=== PATIENT | male | born 1960 | race Caucasian/White ===

== ENCOUNTER → 2016-09-17 | Outpatient (CLI) | payer OTHER ==
[~2016-09-17] MED LIST: BACTRIM DS 8001 TAB PO; Cleocin150 MG PO; DELTASONE20 M1 PO; FLOMAX0.4 MG PO; HYDROCODONE BIT1 T11 PO; KEFLEX500 MG PO; LASIX20 MG PO; LASIX40 MG PO; LISINOPRIL20 MG PO; LISINOPRIL40 MG PO; NAPROSYN500 MG PO; NKHM; NORCO 325 MG-51 TAB PO; PERCOCET 325 MG1 TA2 PO; PERCOCET 325 MG1 TA7 PO; PREDNICOT20 MG PO; PROAIR RESPICL90 MCG IH; VENTOLIN H0.09 MG/AC INH; ZOFRAN ODT4 MG SL; Zofran4 MG PO
== END | disposition home or self-care (01) ==
LOC: RESCLI 01:09
DX: Z12.11 Encounter for screening for malignant neoplasm of colon (principal); J44.9 Chronic obstructive pulmonary disease, unspecified; I10 Essential (primary) hypertension; Z71.6 Tobacco abuse counseling

== ENCOUNTER → 2017-03-25 | Outpatient (CLI) | payer MEDICARE | END | disposition home or self-care (01) | LOC: RESCLI 03-18 07:37 | DX: I11.0 Hypertensive heart disease with heart failure (principal); I50.9 Heart failure, unspecified; J44.9 Chronic obstructive pulmonary disease, unspecified; G47.30 Sleep apnea, unspecified; Z72.0 Tobacco use; Z71.6 Tobacco abuse counseling ==

== ENCOUNTER → 2017-10-01 | Outpatient (CLI) | payer MEDICARE | END | disposition home or self-care (01) | LOC: RESCLI 03:57 | DX: J44.9 Chronic obstructive pulmonary disease, unspecified (principal); I11.0 Hypertensive heart disease with heart failure; I50.30 Unspecified diastolic (congestive) heart failure; M25.562 Pain in left knee; E66.01 Morbid (severe) obesity due to excess calories; B97.89 Other viral agents as the cause of diseases classified elsewhere; J01.90 Acute sinusitis, unspecified; Z72.0 Tobacco use; Z71.6 Tobacco abuse counseling ==

== ENCOUNTER → 2018-07-01 | Outpatient (CLI) | payer MEDICARE, MEDICAID ==
[~2018-07-01] MED LIST changes: +LEVOFLOXACIN500 MG PO; +PREDNISONE10 MG PO; +PROAIR HFA8.5 GM INH; +SYMB160 INH
== END | disposition home or self-care (01) ==
LOC: RESCLI 01:17
DX: I11.0 Hypertensive heart disease with heart failure (principal); I50.30 Unspecified diastolic (congestive) heart failure; J44.9 Chronic obstructive pulmonary disease, unspecified; E66.01 Morbid (severe) obesity due to excess calories; M54.5 Low back pain; G89.29 Other chronic pain; F17.200 Nicotine dependence, unspecified, uncomplicated; Z79.899 Other long term (current) drug therapy; Z71.6 Tobacco abuse counseling; Z79.82 Long term (current) use of aspirin; Z88.6 Allergy status to analgesic agent

== ENCOUNTER 2018-08-28 17:01 | Inpatient (IN) | payer MEDICARE, MEDICAID ==
[~2018-08-28] VITALS: Ht 177.8 cm; Wt 138.4 kg
--- NOTE | ~2018-08-28 | EKG ---
[place], [place] ELECTROCARDIOGRAM REPORT NAME: THU BANSAL UNIT #: [id number] ROOM: DOCTOR: RUSTY DRAFT REPORT BIRTHDATE: [birth year] [facility] Test Date: 2018-08-28 Test Time: 17:25:46 Pat Name: THU BANSAL Department: Room: Gender: Foreign Correspondent: MELINDA : 1960 Requested By: ROSA M EVANS Order Number: [id number] Reading MD: Measurements Intervals [place] Rate: 74 P: 67 NM: 143 QRS: -42 QRSD: 94 T: 62 QT: 388 QTc: 431 Interpretive Statements Sinus rhythm Left axis deviation Borderline low voltage, extremity leads Consider anterior infarct Compared to ECG 04/01/2018 15:04:06 Myocardial infarct finding now present CM:EKGRPT:ELECTROCARDIOGRAM REPORT [id number] ROSA M GONZALEZ DRAFT REPORT ROSA M EVANS DO
--- NOTE | ~2018-08-28 | CON ---
[place], [place] REPORT OF CONSULTATION NAME: THU BANSAL UNIT #: [id number] ROOM: 401 DOCTOR: OLIVIA VU MD BIRTHDATE: [birth year] DOS: 08/30/2018 PULMONARY CONSULTATION, EVALUATION AND MANAGEMENT CONSULTATION REQUESTED BY: Hospitalist service. REASON FOR CONSULTATION: For assessment of COPD and other respiratory problems. HISTORY OF PRESENT ILLNESS: This is a 58-year-old white male patient has been known with history of severe COPD and has been assessed in the office last on 10/22/2017 with FEV1 at that time noted at 39%. The patient has been also noted with history of obstructive sleep apnea disorder as well from the past. The patient was not using the CPAP as he has been admitted to the hospital under care of hospitalist service on the date of 08/28/2018, presented to the hospital. The patient reported symptoms of progressive shortness of breath, which have been occurring for the past few days at home. Symptoms of shortness of breath have been occurring for this patient 3 days prior to the hospitalization. Symptoms are also associated with increased edema of the lower extremities, nonproductive cough. The patient was complaining of symptoms of orthopnea as well. He has been noted with symptoms of wheezing. There was no chest pain. The patient admitted to the hospital for further medical management of current problem. REVIEW OF SYSTEMS: CONSTITUTIONAL: Fatigue and tiredness reported. Denies symptoms of fever or chills. EYES: Denies any burning, redness, or tenderness. EARS, NOSE, THROAT SYMPTOMS: Denies sore throat, hoarseness, otalgia, postnasal drainage or discharge. CARDIOVASCULAR: Increased edema of the lower extremity. The patient noted symptoms or orthopnea. There have been no symptoms of palpitation or anginal pain. GASTROINTESTINAL: Denies dysphagia, nausea, vomiting, diarrhea, abdominal pain, hematemesis, melena, or hematochezia. SKIN: Denies abnormal lesions or rash except chronic venous stasis pigmentation in lower extremities. GENITOURINARY: No dysuria suprapubic pain, hematuria or urinary incontinence. MUSCULOSKELETAL: No acute joint pain, redness, or tenderness. CENTRAL NERVOUS SYSTEM: Denies dizziness, headache, diplopia, syncope or seizures. Remaining systems were reviewed. They were noted all negative. PAST MEDICAL HISTORY: Known with: 1. Essential hypertension. 2. Morbid obesity. 3. History of bronchial asthma. 4. Chronic obstructive pulmonary disease. 5. Obstructive sleep apnea disorder, which has noted severe nonadherence with the treatment since 2016. [place], [place] REPORT OF CONSULTATION NAME: THU BANSAL UNIT #: [id number] ROOM: 401 DOCTOR: BIANCA ORDAZ MD,OLIVIA BIRTHDATE: [birth year] SOCIAL HISTORY: The patient is , has 2 children, lives at home. No history of alcohol use or any illicit drug use. Tobacco use noted from age [age] years old, 2 packs of cigarettes per day, stating discontinued tobacco products in 07/2018. PAST SURGICAL HISTORY: Denies any major surgical history in the past. FAMILY HISTORY: Father at 62 years of complications of COPD. Mother at 70 years old from an accident. HOME MEDICATIONS: Listed as use of Symbicort, ProAir, Lasix and lisinopril. DRUG ALLERGIES: REPORTED ALLERGY TO THE LEVAQUIN. PHYSICAL EXAMINATION: GENERAL: This is a 58-year-old white male patient currently noted comfortable lying in the bed without acute distress this morning of assessment. Height of 5 feet 10 inches, weight of 205 pounds, BMI 43.7. VITAL SIGNS: Normal temperature of the patient's respiratory rate of 18-20, heart rate 86-72, blood pressure 137/76-153/70. Intake recorded as 1750 Ml. Pulse oxygen saturation on 2.5 liters nasal cannula 93% saturation. Admission oxygen saturation 87%. HEENT: Examination shows chronic morbid obesity. Head was atraumatic. Eyes nonicterus. Decreased posterior pharyngeal space with high tongue base and crowding of soft tissue structures. CARDIOVASCULAR: S1, S2 is audible. LUNGS: Noted diffuse reduction of the breath sounds bilaterally with expiratory wheezing bilaterally. There were no crackles. ABDOMEN: Soft and obese. EXTREMITIES: The patient noted without any acute edema. Chronic venous stasis pigmentation changes were also noted with the dryness of the skin. MUSCULOSKELETAL: Without acute deformities. Cranial nerves 2-12 intact. No focal deficit. MUSCULOSKELETAL: No deformity. LABORATORY DATA: The patient's CBC from 08/28/2018 admission was noted as normal CBC. Lactic acid 1.0, on 08/28/2018. CMP, glucose 121 with a normal BUN and creatinine. CO2 was noted at 33. CBC of this morning WBC count 14.6, hemoglobin and hematocrit normal, platelet count normal. BMP this morning, glucose 153, normal BUN and creatinine, CO2 remains at 33. LFTs, which were done noted mild elevation of AST at 41 and ALT of 96, this was done on 08/29/2018. Influenza A and B, nasal washing antigens were negative. Ultrasound of the abdomen was also completed on this hospitalization of 08/29/2018 was reported with hepatomegaly and marked hepatic steatosis. Blood culture, 08/28/2018 showed no bacterial growth. Chest x-ray one-view was only taking in the Emergency Room on 08/28/2018 was noted with hyperinflation of lungs without any acute pulmonary infiltration. IMPRESSION: [place], [place] REPORT OF CONSULTATION NAME: THU BANSAL UNIT #: [id number] ROOM: [facility] DOCTOR: OLIVIA VU MD BIRTHDATE: [birth year] 1. The patient will be admitted to the hospital with acute hypoxic respiratory failure as well related to acute exacerbation of chronic obstructive pulmonary disease and bronchial asthma. 2. The patient with obstructive sleep apnea noted having treatment. 3. Metabolic alkalosis secondary to chronic hypercarbia and chronic obstructive pulmonary disease very likely. 4. Acute congestive heart failure with possibly cor pulmonale with congestive heart failure, diastolic dysfunction could be considered. 5. Hyperglycemia related to the use of the corticosteroids as well. PLAN OF MANAGEMENT: Continue current dose of Solu-Medrol with gradual reduction based on improvement in the symptoms. Sputum for Gram stain and culture, in case of sputum expectoration. Diuretic therapy to be continued orally and intravenously could be given in case of worsening of the edema of the lower extremity. Consider cardiac assessment and echocardiogram for the assessment of right and the left cardiac functions. Bronchodilator therapy and plan of management as well. Other additional treatment changes will be recommended based on progression of illness. Continue DVT prophylaxis and other care, plan of management. Thanks for allowing me to participate in the care of this patient. OLIVIA VALENZUELA MD CM:CONSTR:REPORT OF CONSULTATION 1659 09/09/18 0728 interface
--- NOTE | ~2018-08-28 | PR ---
[place], [place] PROGRESS NOTE NAME: THU BANSAL UNIT #: [id number] ROOM: 401 DOCTOR: OLIVIA VU MD BIRTHDATE: [birth year] DOS: 08/31/2018 SUBJECTIVE: The patient has been noted comfortable at this time, resting on the bed, has been noted with continued reduction and improvement in the respiratory symptom progressively. Denies symptoms of chest pain, shortness of breath, coughing, wheezing, all other symptoms improvement. Edema in the lower extremity is resolving. OBJECTIVE: VITAL SIGNS: Normal temperature, respiratory rate 20, heart rate 73, blood pressure 156/67. The pulse oxygen saturation of the patient recorded at rest on 2.5 liter nasal cannula 93% saturation. HEENT: No acute change. NECK: Supple. CARDIOVASCULAR: S1, S2 audible. LUNGS: Noted with decreased breath sounds and scattered wheezing. There are no crackles. ABDOMEN: Soft, nontender. Bowel sounds present. EXTREMITIES: Resolving edema. IMPRESSION: 1. Resolving acute cor pulmonale/congestive heart failure, possible diastolic dysfunction. 2. Hyperglycemia secondary to corticosteroids. 3. Acute exacerbation of chronic obstructive pulmonary disease with acute hypoxic respiratory failure. PLAN OF MANAGEMENT: Decrease the Solu-Medrol to 40 mg b.i.d. dosing. The patient has been ordered echocardiogram that will be done tomorrow morning for assessment of the cardiac functions. Home oxygen assessment. Possible potential discharge tomorrow has been also ordered to be done. Assessment and management. Discharge planning was discussed with the primary care attending of this patient, Dr. Olivarez. [place], [place] PROGRESS NOTE NAME: THU BANSAL UNIT #: [id number] ROOM: 401 DOCTOR: OLIVIA VU MD BIRTHDATE: [birth year] OLIVIA VALENZUELA MD CM:PNTRANS 1433 [id number] OLIVIA ORDAZ MD 08/31/18 1830 interface
[2018-08-28 17:01] VITALS: BP 187/75
--- NOTE | 2018-08-28 17:10 | NUR ---
NO MED LIST.
[2018-08-28 17:47] LABS: BASO # 0.1 10*3/uL (0.0-0.1); BASO % 0.7 % (0.0-1.0); EOS # 0.5 10*3/uL (0.0-0.4); EOS % 7.5 % (1.0-4.0); HEMATOCRIT 45.4 % (42.0-52.0); HEMOGLOBIN 15.4 g/dl (14.0-18.0); LYMPH # 1.5 10*3/uL (1.3-4.4); LYMPH % 21.3 % (27.0-41.0); MEAN CELL VOLUME 94.4 fl (80.0-94.0); MEAN CORPUSCULAR HGB CONC 33.9 g/dl (33.0-37.0); MEAN PLATELET VOLUME 10.8 fl (9.6-12.3); MONO # 0.5 10*3/uL (0.1-1.0); MONO % 6.9 % (3.0-9.0); NEUT # 4.4 10*3/uL (2.3-7.9); NEUT % 62.7 % (47.0-73.0); PLATELET COUNT AUTOMATED 152 10*3/uL (130-400); RED BLOOD COUNT 4.81 10*6/uL (4.50-5.90); RED CELL DISTRI WIDTH 13.3 % (0-14.5); WHITE BLOOD COUNT 6.9 10*3/uL (4.8-10.8)
[2018-08-28 17:56] LABS: ACT PARTIAL THROMBO TIME 23.4 SECONDS (20.8-31.5)
[2018-08-28 18:01] LABS: ALBUMIN 3.7 gm/dl (3.1-4.5); ALKALINE PHOSPHATASE 78 U/L (45-117); BUN 14 mg/dl (7-24); CHLORIDE 105 mmol/L (98-107); CREATININE 0.97 mg/dL (0.70-1.30); LIPASE 140 U/L (73-393); SGOT/AST 55 IU/L (3-35); SGPT/ALT 100 U/L (12-78); SODIUM 144 mmol/L (136-145); TOTAL PROTEIN 7.5 gm/dL (6.4-8.2)
--- NOTE | 2018-08-28 18:08 | NUR ---
SOLUMEDROL STOP TIME
[2018-08-28 18:10] LABS: TROPONIN I < 0.015 ng/ml (<0.045)
--- NOTE | 2018-08-28 18:36 | NUR ---
ROCEPHIN STOP TIME
[2018-08-28 19:06] VITALS: BP 146/96
[2018-08-28 19:22] VITALS: BP 151/76
[2018-08-28 19:30] VITALS: BP 148/88
[2018-08-28 19:36] VITALS: BP 148/88
--- NOTE | 2018-08-28 19:36 | NUR ---
A 58, admitted to , under the services of GLO Stephen DO with a diagnosis of ACUTE RESP FAILURE W HYPOXIA, HILL, PNEUMONITIS. Chief complaint is SHORTNESS OF BREATH. Patient arrived via bed from ER. Monitor applied. Initial assessment completed. Vital signs taken and recorded. GLO STEPHEN DO notified of admission to the unit. Orders received. See assessment for past medical history, medications and allergies. Patient and/or family oriented to unit. [facility] visitation policy reviewed. Clothing/patient valuable form completed. MARY WEI
--- NOTE | 2018-08-28 20:09 | NUR ---
MED REC UPDATED WITH PATIENT
--- NOTE | 2018-08-28 20:12 | NUR ---
DR CAMPBELL IN WITH PATIENT AT THIS TIME.
--- NOTE | 2018-08-28 22:06 | NUR ---
NOTIFIED DR VALENZUELA OF CONSULT. STATED HE WILL SEE HIM ON SATURDAY
[2018-08-29] VITALS: BP 153/70
[2018-08-29 07:33] LABS: BASO % 0.3 % (0.0-1.0); HEMATOCRIT 49.2 % (42.0-52.0); LYMPH % 9.1 % (27.0-41.0); MEAN CELL VOLUME 95.2 fl (80.0-94.0); MEAN CORPUSCULAR HGB 30.9 pg (27.0-31.0); MEAN CORPUSCULAR HGB CONC 32.5 g/dl (33.0-37.0); MEAN PLATELET VOLUME 11.3 fl (9.6-12.3); MONO # 0.2 10*3/uL (0.1-1.0); MONO % 1.6 % (3.0-9.0); NEUT # 9.1 10*3/uL (2.3-7.9); NEUT % 87.7 % (47.0-73.0); PLATELET COUNT AUTOMATED 177 10*3/uL (130-400); RED BLOOD COUNT 5.17 10*6/uL (4.50-5.90); RED CELL DISTRI WIDTH 13.2 % (0-14.5); WHITE BLOOD COUNT 10.4 10*3/uL (4.8-10.8)
[2018-08-29 07:53] LABS: ALBUMIN 3.7 gm/dl (3.1-4.5); ALKALINE PHOSPHATASE 74 U/L (45-117); BUN 16 mg/dl (7-24); CHLORIDE 102 mmol/L (98-107); CREATININE 0.98 mg/dL (0.70-1.30); FREE T4 0.79 ng/dl (0.76-1.46); PHOSPHOROUS 3.5 mg/dL (2.5-4.9); SGOT/AST 41 IU/L (3-35); SGPT/ALT 96 U/L (12-78); SODIUM 141 mmol/L (136-145)
[2018-08-29 07:58] LABS: THYROID STIM HORMONE (HS) 0.343 uIU/ml (0.358-4.75)
[2018-08-29 08:00] VITALS: BP 130/72
--- NOTE | 2018-08-29 09:00 | NUR ---
Fluid Pump Operator in to talk to patient. Patient states lives at home with . There are few steps in the home. Physician: resident clinic Pharmacy: [facility] pharmacy Home health services: none Patient's level of ADLs: INDEPENDENT Patient has working utilities: all working DME: nebulizer Follow-up physician's appointment after d/c: will be made by hospitalist nurse director upon discharge Does patient want to access PORTAL?: no Discharge plan discussed with patient, patient lives at home with , he is independent in adls and ambulation, works, drives, patient tates he will be going back home when able and denies any home needs. ИРИНА CHANG
[2018-08-29 12:00] VITALS: BP 117/48
[2018-08-29 16:00] VITALS: BP 106/50
[2018-08-29 20:16] VITALS: BP 133/62
--- NOTE | 2018-08-29 23:17 | NUR ---
24 HR chart check completed.
[2018-08-30] VITALS: BP 131/59
[2018-08-30 06:48] LABS: BASO % 0.1 % (0.0-1.0); HEMOGLOBIN 14.8 g/dl (14.0-18.0); LYMPH # 0.9 10*3/uL (1.3-4.4); LYMPH % 5.9 % (27.0-41.0); MEAN CELL VOLUME 97.9 fl (80.0-94.0); MEAN CORPUSCULAR HGB 30.8 pg (27.0-31.0); MEAN CORPUSCULAR HGB CONC 31.5 g/dl (33.0-37.0); MEAN PLATELET VOLUME 11.2 fl (9.6-12.3); MONO # 0.6 10*3/uL (0.1-1.0); MONO % 4.1 % (3.0-9.0); NEUT # 12.9 10*3/uL (2.3-7.9); NEUT % 88.3 % (47.0-73.0); PLATELET COUNT AUTOMATED 187 10*3/uL (130-400); RED CELL DISTRI WIDTH 13.3 % (0-14.5); WHITE BLOOD COUNT 14.6 10*3/uL (4.8-10.8)
[2018-08-30 07:04] LABS: BUN 18 mg/dl (7-24); CHLORIDE 104 mmol/L (98-107); CREATININE 1.02 mg/dL (0.70-1.30); POTASSIUM 4.1 mmol/L (3.5-5.1); SODIUM 144 mmol/L (136-145)
[2018-08-30 07:04] LABS: HEPATITIS B SURFACE AG Negative (Negative); HEPATITIS C VIRUS ANTIBODY <0.1 s/co (0.0-0.9)
[2018-08-30 08:00] VITALS: BP 156/78
[2018-08-30 12:00] VITALS: BP 137/76
[2018-08-30 16:00] VITALS: BP 131/70
[2018-08-30 20:00] VITALS: BP 128/65
--- NOTE | 2018-08-30 20:00 | NUR ---
ALERT ORIENTED X 3. VISITOR AT BEDSIDE. NO C/O VOICED.
[2018-08-31] VITALS: BP 149/81
--- NOTE | 2018-08-31 01:17 | NUR ---
24 HR chart check completed.
[2018-08-31 08:00] VITALS: BP 136/50
[2018-08-31 12:00] VITALS: BP 156/67
[2018-08-31 16:00] VITALS: BP 123/84
--- NOTE | 2018-08-31 16:25 | NUR ---
PT WAS ASSESSED FOR HOME OXYGEN. PT QUALIFIES PT AT REST 92% RA, HR 83, RR 18, B/P 136/50 PT AMBULATED SPO2 86%-87% RA PLACED PT ON 2L, PT AMBULATED SPO2 87-88% ON 2L INCREASED FIO2 TO 3L PT AMBULATED SPO2 91-93% ON 3LNC PT AT REST SPO2 96% 3LNC, HR 90, RR 20, B/P 156/67 RN AND NOTIFIED
--- NOTE | 2018-08-31 18:26 | NUR ---
Shift chart check completed.
[2018-08-31 20:00] VITALS: BP 159/73
--- NOTE | 2018-08-31 20:45 | NUR ---
AWAKE/ALERT FOR SHIFT ASSESSMENT. RESPIRATIONS EASY/REG ON 3LNC. NO VOICED COMPLAINTS AT THIS TIME. ABX INFUSING ORDERD. BED IN LOW POSITION. WHEELS LOCKED, CALL LIGHT IN REACH
[2018-09-01] VITALS: BP 166/78
--- NOTE | 2018-09-01 03:02 | NUR ---
SLEEPING. NO S/S OF DISTRESS NOTED. CALL LIGHT IN REACH
[2018-09-01 06:35] LABS: HEMATOCRIT 52.5 % (42.0-52.0); HEMOGLOBIN 16.1 g/dl (14.0-18.0); MEAN CORPUSCULAR HGB 31.3 pg (27.0-31.0); MEAN CORPUSCULAR HGB CONC 30.7 g/dl (33.0-37.0); MEAN PLATELET VOLUME 11.4 fl (9.6-12.3); PLATELET COUNT AUTOMATED 205 10*3/uL (130-400); RED BLOOD COUNT 5.15 10*6/uL (4.50-5.90); RED CELL DISTRI WIDTH 13.6 % (0-14.5); WHITE BLOOD COUNT 13.2 10*3/uL (4.8-10.8)
[2018-09-01 06:37] LABS: MEAN CELL VOLUME 101.9 fl (80.0-94.0)
[2018-09-01 06:38] LABS: BUN 23 mg/dl (7-24); CHLORIDE 101 mmol/L (98-107); CREATININE 1.05 mg/dL (0.70-1.30); POTASSIUM 4.8 mmol/L (3.5-5.1); SODIUM 140 mmol/L (136-145)
[2018-09-01 06:43] LABS: TOTAL CELLS COUNTED 100 #CELLS
[2018-09-01 06:44] LABS: PLATELET SUFFICIENCY NORMAL (NORMAL)
[2018-09-01 06:45] LABS: POLYCHROMASIA SLIGHT
[2018-09-01 08:00] VITALS: BP 179/89
[2018-09-01] MEDS ORDERED: VITAMIN D32000 UNI1 PO (08:07)
[2018-09-01] MEDS ORDERED: AVPAK AZITHROM250 MG PO (08:07)
[2018-09-01] MEDS ORDERED: PREDNISONE10 MG PO (08:08)
--- NOTE | 2018-09-01 09:00 | NUR ---
case management visits with patient, again discussed with him VNA, patient was receptive to this, given choice of companies, patient chose [facility], will send referral to [facility] for when patient is medically stable for discharge
--- NOTE | 2018-09-01 12:08 | NUR ---
case management called [facility], spoke to Sushil, informed him that patient would be going home today and that patient's information was faxed
--- NOTE | 2018-09-01 12:27 | NUR ---
PATIENT HAS BEEN DISCHARGED. IV DISCONTINUED. PATIENT ACCOMPANIED OFF OF FLOOR BY AND RN. PATIENT WAS TAKEN BY WHEELCHAIR.
== END 2018-09-01 12:27 | disposition home health service (06) | DRG 193 ==
LOC: ED 17:01 → EDHOLD 18:04 → 4E 18:04
PROVIDERS: Emergency Medicine; Family Medicine; Internal Medicine; Student in an Organized Health Care Education/Training Program; ADMIT Internal Medicine
DX: J18.9 Pneumonia, unspecified organism (principal); J96.01 Acute respiratory failure with hypoxia; J96.02 Acute respiratory failure with hypercapnia; I26.09 Other pulmonary embolism with acute cor pulmonale; J45.901 Unspecified asthma with (acute) exacerbation; E87.3 Alkalosis; J43.9 Emphysema, unspecified; E83.41 Hypermagnesemia; I50.9 Heart failure, unspecified; R73.03 Prediabetes; R60.9 Edema, unspecified; K57.90 Diverticulosis of intestine, part unspecified, without perforation or abscess without bleeding; G47.33 Obstructive sleep apnea (adult) (pediatric); F17.210 Nicotine dependence, cigarettes, uncomplicated; K76.0 Fatty (change of) liver, not elsewhere classified; R79.82 Elevated C-reactive protein (CRP); I16.0 Hypertensive urgency; R74.0 Nonspecific elevation of levels of transaminase and lactic acid dehydrogenase [LDH]; R73.9 Hyperglycemia, unspecified; T38.0X5A Adverse effect of glucocorticoids and synthetic analogues, initial encounter; Y92.89 Other specified places as the place of occurrence of the external cause; Z71.6 Tobacco abuse counseling; Z88.1 Allergy status to other antibiotic agents; Z87.01 Personal history of pneumonia (recurrent); Z82.49 Family history of ischemic heart disease and other diseases of the circulatory system; Z83.3 Family history of diabetes mellitus; Z79.899 Other long term (current) drug therapy; Z82.5 Family history of asthma and other chronic lower respiratory diseases

== ENCOUNTER → 2018-09-04 | Outpatient (CLI) | payer OTHER ==
[~2018-09-04] MED LIST changes: +AVPAK AZITHROM250 MG PO; +MUCINEX ER600 MG PO; +VITAMIN D32000 UNI1 PO; +ZITHROMAX500 MG PO
== END | disposition home or self-care (01) ==
DX: Z09 Encounter for follow-up examination after completed treatment for conditions other than malignant neoplasm (principal); E66.01 Morbid (severe) obesity due to excess calories; I10 Essential (primary) hypertension; R60.0 Localized edema; J44.9 Chronic obstructive pulmonary disease, unspecified; G89.29 Other chronic pain; E55.9 Vitamin D deficiency, unspecified; Z79.82 Long term (current) use of aspirin; Z79.899 Other long term (current) drug therapy; Z99.81 Dependence on supplemental oxygen; Z88.8 Allergy status to other drugs, medicaments and biological substances; Z87.891 Personal history of nicotine dependence

== ENCOUNTER → 2018-10-07 | Outpatient (CLI) | payer OTHER ==
[~2018-10-07] MED LIST changes: -MUCINEX ER600 MG PO; -ZITHROMAX500 MG PO
== END | disposition home or self-care (01) ==
LOC: RESCLI 01:34
DX: I10 Essential (primary) hypertension (principal); R60.0 Localized edema; J44.9 Chronic obstructive pulmonary disease, unspecified; G89.29 Other chronic pain; E55.9 Vitamin D deficiency, unspecified; E11.65 Type 2 diabetes mellitus with hyperglycemia; E66.01 Morbid (severe) obesity due to excess calories; Z87.891 Personal history of nicotine dependence; Z79.899 Other long term (current) drug therapy; Z88.8 Allergy status to other drugs, medicaments and biological substances

== ENCOUNTER 2018-11-27 21:28 | Inpatient (IN) | payer OTHER ==
[~2018-11-27] VITALS: Ht 177.8 cm; Wt 139.3 kg
--- NOTE | ~2018-11-27 | PR ---
[place], [place] PROGRESS NOTE NAME: THU BANSAL UNIT #: [id number] ROOM: 402 DOCTOR: BIANCA ORDAZ MD,OLIVIA BIRTHDATE: [birth year] DOS: 11/29/2018 PULMONARY PROGRESS NOTE SUBJECTIVE: The patient is noted comfortable at this time, resting on the bed this morning. Denies symptoms of fever or chills. Denies symptoms of hemoptysis. Reduction of the respiratory symptoms noted in the last 24 hours. OBJECTIVE: VITAL SIGNS: Normal temperature, respiratory rate 20, heart rate 91, blood pressure ____. Pulse ox saturation on 2 liters nasal cannula is 93% saturation. HEENT: Examination shows chronic obesity. Head is atraumatic. NECK: Supple. CARDIOVASCULAR: S1 and S2 is audible. LUNGS: Noted without any wheezing or crackles at the present time. Breaths are noted mildly decreased bilaterally. ABDOMEN: Soft, nontender. Bowel sounds are present. EXTREMITIES: No new change. LABORATORY DATA: Sputum culture preliminarily noted normal nhung. BMP this morning: Normal BUN and creatinine, glucose elevated at 269. IMPRESSION: The patient who has been currently noted with: 1. Gradual resolution of acute exacerbation of bronchial asthma, eosinophilic type, and exacerbation of chronic obstructive pulmonary disease. 2. The patient with obstructive sleep apnea disorder as well, nonadherence to the treatment. PLAN OF MANAGEMENT: No changes in the plan of care. Continue bronchodilators, oxygen supplementation, steroids, and other therapies. Usual care. Solu-Medrol dose will be decreased today to 40 mg b.i.d. dosing. OLIVIA VALENZUELA MD CM:PNTRANS 1419 0051 OLIVIA ORDAZ MD 12/01/18 0945 interface
--- NOTE | ~2018-11-27 | EKG ---
[place], [place] ELECTROCARDIOGRAM REPORT NAME: THU BANSAL UNIT #: [id number] ROOM: 402 DOCTOR: EPIPHANY DRAFT REPORT BIRTHDATE: [birth year] [facility] Test Date: 2018-11-27 Test Time: 21:54:24 Pat Name: THU BANSAL Department: Room: 402 Gender: M Camera Repairer: EKG.UT : 1960 Requested By: YASHIRA ALDRICH Order Number: [id number] Reading MD: Mary Daniel MD Measurements Intervals [place] Rate: 73 P: 0 TN: 140 QRS: -24 QRSD: 102 T: 65 QT: 414 QTc: 457 Interpretive Statements Sinus rhythm Borderline left axis deviation Abnormal R-wave progression, late transition Artifact in lead(s) I,II,aVR,aVL,aVF,V2,V5 Compared to ECG 08/28/2018 17:25:46 No significant changes Electronically Signed On 11-28-2018 12:36:31 PDT by Mary Daniel MD CM:EKGRPT:ELECTROCARDIOGRAM REPORT [id number] 1236 YASHIRA ALDRICH MD EPIPHANY DRAFT REPORT YASHIRA ALDRICH MD
--- NOTE | ~2018-11-27 | PR ---
[place], [place] PROGRESS NOTE NAME: THU BANSAL UNIT #: [id number] ROOM: 402 DOCTOR: BIANCA ORDAZ MD,OLIVIA BIRTHDATE: [birth year] DOS: 12/01/2018 PULMONARY PROGRESS NOTE SUBJECTIVE: The patient continue to do well at this time without any acute new respiratory complaints. Shortness of breath is improving. There were no symptoms of chest pain, fever, or chills. He denies symptoms of hemoptysis. He has been using oxygen supplement this morning of assessment. OBJECTIVE: VITAL SIGNS: The vital signs of the patient, which were recorded showed, the temperature noted as normal, respiratory rate of 20, heart rate of 76 per minute, and blood pressure of 136/69. Pulse ox saturation on 3 liters nasal cannula is 93% saturation. HEENT: On examination, head was atraumatic. Eyes nonicterus. NECK: Supple. Chronic obesity. CARDIOVASCULAR SYSTEM: S1, S2 audible. LUNGS: Without any wheeze or crackle at the present time. ABDOMEN: Soft, nontender. Bowel sounds present. EXTREMITIES: No acute change. IMPRESSION: The patient with stable respiratory status, resolving acute respiratory failure, exacerbation of chronic obstructive pulmonary disease, gradually and progressively; bacteremia ____, most likely a contaminant of the skin. PLAN OF MANAGEMENT: Discharge planning with home oxygen assessment, tapering prednisone, and antibiotic orally. Followup in office would be recommended. Abstinent of tobacco use was recommended. OLIVIA VALENZUELA MD CM:PNTRANS 1250 6 OLIVIA ORDAZ MD 12/02/18 0127 interface
--- NOTE | ~2018-11-27 | PR ---
[place], [place] PROGRESS NOTE NAME: THU BANSAL UNIT #: [id number] ROOM: 402 DOCTOR: BIANCA ORDAZ MD,OLIVIA BIRTHDATE: [birth year] DOS: 11/29/2018 SUBJECTIVE: The patient was seen and examined. The patient noted comfortable at this time, reduction in symptoms of shortness breath was noted. Denies any symptoms of fever or chills. Denies symptoms of coughing or any acute hemoptysis at the present time. Using oxygen supplementation cannula. Continue the steroids and bronchodilators. OBJECTIVE: VITAL SIGNS: The temperature is normal. The respiratory rate 20, heart rate 84, blood pressure 140/62, pulse ox 96% saturation on 4 liters cannula. HEAD, EYES, EARS, NOSE, AND THROAT: Examination shows head was atraumatic. Eyes nonicterus. NECK: Supple. CARDIOVASCULAR SYSTEM: S1, S2 audible. LUNGS: Moderate expiratory wheezing with decreased breath sounds. ABDOMEN: Soft, nontender. Bowel sounds present. EXTREMITIES: Chronic obesity. LABORATORY DATA: CBC that was done today 11/29/2018, WBC count 14.5, hemoglobin 14. Platelet count was normal. CMP as normal BUN and creatinine, glucose 270. IMPRESSION: 1. Acute exacerbation of chronic obstructive pulmonary disease, acute tracheobronchitis as well as bronchial asthma. 2. Hyperglycemia secondary to corticosteroids. PLAN OF TREATMENT: Continue current dose of steroids, bronchodilators, oxygen supplementation, reduction of corticosteroids, tomorrow depends on improvement of respiratory status. OLIVIA VALENZUELA MD CM:PNTRANS 1421 1548 GOLDEN ORDAZ MD 12/01/18 0940 LORY MOCTEZUMA
--- NOTE | ~2018-11-27 | CON ---
[place], [place] REPORT OF CONSULTATION NAME: THU BANSAL UNIT #: [id number] ROOM: 402 DOCTOR: OLIVIA VU MD BIRTHDATE: [birth year] DOS: 11/28/2018 PULMONARY CONSULTATION, EVALUATION, AND MANAGEMENT CONSULTATION REQUESTED BY: Hospitalist Services. REASON FOR CONSULTATION: Assessment of acute exacerbation of chronic obstructive pulmonary disease. HISTORY OF PRESENT ILLNESS: This is a 58-year-old white male, who has been known to me from the past. The patient has been admitted to the hospital on the date of 11/27/2018. The patient presented to the Emergency Room, as he has reported having symptoms of increased coughing associated with significant wheezing and shortness breath for the past 3 to 4 days. Symptoms have been noted progressively getting worse at home. He has been taking usual medications of respiratory disease, has showed no improvement in the respiratory symptoms. Cough has been noted with productive sputum, brown to green in color at times in small quantity. Denies symptoms of chest pain. Chest tightness was reported. There were no symptoms of hemoptysis. The patient has been currently admitted to the hospital for the medical management of acute exacerbation of COPD. REVIEW OF SYSTEMS: CONSTITUTIONAL: Fatigue and tiredness noted without any symptoms of fever or chills. EYES: Denies any burning, redness, or tenderness. EARS, NOSE, AND THROAT: Denies sore throat, hoarseness, otalgia, postnasal drainage or epistaxis. CARDIOVASCULAR: Denies anginal pain, edema of the lower extremities or any pain. Chronic changes in lower extremity were known. GENITOURINARY: Denies dysuria, suprapubic pain, hematuria, or urinary incontinence. GASTROINTESTINAL: Denies dysphagia, nausea, vomiting, diarrhea, abdominal pain, hematemesis, melena, or hematochezia. SKIN: Denies abnormal lesions or rashes. Chronic venous stasis with pigmentation of lower extremity was known. There were no open areas. MUSCULOSKELETAL: Denies any abnormal deformities. Denies any joint pain. CENTRAL NERVOUS SYSTEM: Denies dizziness, headache, diplopia, syncopal episode, or any loss of strength. Remaining systems were reviewed, they were noted all negative. PAST MEDICAL HISTORY: Known for: 1. COPD. 2. Obstructive sleep apnea disorder. 3. Uncomplicated [id number] persistent bronchial asthma. 4. Morbid obesity. 5. Essential hypertension. SOCIAL HISTORY: The patient is . He has 2 children. He lives at home. Denies history of alcohol use or illicit drug use. Tobacco use was reported at [place], [place] REPORT OF CONSULTATION NAME: THU BANSAL UNIT #: [id number] ROOM: 402 DOCTOR: OLIVIA VU MD BIRTHDATE: [birth year] the age of 19 years as 2-pack of cigarettes per day and has not been smoking any cigarettes since July 2018. PAST SURGICAL HISTORY: No major surgeries. FAMILY HISTORY: Father at the age of 62 years from complication of COPD. Mother at 70 years old from motor vehicle accident. MEDICATIONS: The current medications administered are vitamin D, lisinopril, oral Lasix, Lovenox for DVT prophylaxis, Pulmicort Respules, DuoNeb, Solu-Medrol 40 mg every 8 hours, calcium carbonate, IV Zithromax, and Rocephin. DRUG ALLERGIES: NOTED ALLERGIC TO LEVOFLOXACIN. PHYSICAL EXAMINATION: GENERAL: This is a 58-year-old male, currently resting comfortably on the bed without any acute distress this morning of assessment. The patient's height was recorded as 5 feet 10 inches, weight of 307 pounds, BMI 44. The patient has been using oxygen supplementation through nasal cannula. VITAL SIGNS: Normal temperature, respiratory rate ranged between 15-22, heart rate of 87-75, blood pressure was noted as 139/70 to 152/78. HEENT: Severe morbid obesity. Head was atraumatic. NECK: Supple and obese. Severe decreased posterior pharyngeal space. CARDIOVASCULAR SYSTEM: S1 and S2 were audible. LUNGS: The patient was noted with general reduction in breath sound with diffuse expiratory wheezing. No crackles. ABDOMEN: Soft with severe obesity. Bowel sounds present. No tenderness. MUSCULOSKELETAL: Without any acute deformities. CENTRAL NERVOUS SYSTEM: Cranial nerves 2-12 intact. LABORATORY AND DIAGNOSTIC DATA: CBC on 11/27/2018, WBC count 6.1, hemoglobin 13.5, platelet count was normal, eosinophils noted significantly elevated at 7.9% with that. CMP that was done yesterday in the Emergency Room as well was noted normal BUN and creatinine, CO2 36. AST and ALT were noted mildly abnormal. Venous pH was noted at 7.34 ordered by the ER physician. Influenza A and B nasal washing antigen was negative. CBC this morning, WBC count of 6.1, hemoglobin 13.4, platelet count was normal. Chest x-ray one-view that was done in the Emergency Room was reviewed, does not show any acute pulmonary abnormalities. IMPRESSION: 1. The patient has been currently noted with findings of acute exacerbation of chronic obstructive pulmonary disease and acute bronchitis with progression of respiratory symptoms in the past 4 days and hospitalized for further medical management. 2. Acute exacerbation of bronchial asthma, eosinophilic phenotype is also considered as well. 3. Morbid obesity. 4. History of obstructive sleep apnea disorder, nonadherence to treatment previously known. [place], [place] REPORT OF CONSULTATION NAME: THU BANSAL UNIT #: [id number] ROOM: [facility] DOCTOR: BIANCA ORDAZ MD,OLIVIA BIRTHDATE: [birth year] PLAN OF MANAGEMENT: Continue with the current dose of Solu-Medrol, bronchodilators, and oxygen supplementation. Sputum for gram-stain culture will be ordered. Other additional treatment changes will be made for the patient based on progression of the illness. Supportive care. Bronchodilator administration as well. Usual medical management and other therapy at this time. Thanks for allowing me to participate in the care of this patient. OLIVIA VALENZUELA MD CM:CONSTR:REPORT OF CONSULTATION 1156 11/29/18 0207 interface
[2018-11-27 21:30] VITALS: BP 155/64
[2018-11-27 22:06] LABS: BASO # 0.1 10*3/uL (0.0-0.1); BASO % 0.8 % (0.0-1.0); EOS # 0.5 10*3/uL (0.0-0.4); EOS % 7.9 % (1.0-4.0); HEMATOCRIT 42.9 % (42.0-52.0); HEMOGLOBIN 13.5 g/dl (14.0-18.0); LYMPH # 1.7 10*3/uL (1.3-4.4); LYMPH % 27.5 % (27.0-41.0); MEAN CELL VOLUME 99.1 fl (80.0-94.0); MEAN CORPUSCULAR HGB 31.2 pg (27.0-31.0); MEAN CORPUSCULAR HGB CONC 31.5 g/dl (33.0-37.0); MEAN PLATELET VOLUME 11.1 fl (9.6-12.3); MONO # 0.8 10*3/uL (0.1-1.0); MONO % 12.9 % (3.0-9.0); NEUT % 49.8 % (47.0-73.0); PLATELET COUNT AUTOMATED 160 10*3/uL (130-400); RED BLOOD COUNT 4.33 10*6/uL (4.50-5.90); RED CELL DISTRI WIDTH 14.3 % (0-14.5); WHITE BLOOD COUNT 6.1 10*3/uL (4.8-10.8)
[2018-11-27 22:14] LABS: ACT PARTIAL THROMBO TIME 22.2 SECONDS (20.8-31.5); INTERNATIONAL NORM RATIO 0.9 (2.0-3.5)
[2018-11-27 22:28] LABS: ALBUMIN 3.3 gm/dl (3.1-4.5); ALKALINE PHOSPHATASE 83 U/L (45-117); BUN 18 mg/dl (7-24); CHLORIDE 104 mmol/L (98-107); CREATININE 1.18 mg/dL (0.70-1.30); LIPASE 104 U/L (73-393); SGOT/AST 52 IU/L (3-35); SGPT/ALT 99 U/L (12-78); SODIUM 141 mmol/L (136-145); TOTAL PROTEIN 7.4 gm/dL (6.4-8.2)
[2018-11-27 22:36] LABS: TROPONIN I < 0.015 ng/ml (<0.045)
[2018-11-27 22:54] LABS: VENOUS BLOOD GAS O2 SAT 88.5 % (40-85); VENOUS PH 7.341 (7.32-7.43)
[2018-11-27 22:56] VITALS: BP 133/67
--- NOTE | 2018-11-27 22:59 | NUR ---
PATIENT HAS BILATERAL POSTERIOR LOWER LEG DRY PATCHY AREAS NOTED NO DRAINAGE.,. PATIENT HAS HX OF EDEMA TO THE LOWER LEGS. PATIENT HAS BILATERAL ANTERIOR EDEMA TO BOTH FEET.
[2018-11-27 23:28] VITALS: BP 139/70
[2018-11-27 23:45] VITALS: BP 129/61
--- NOTE | 2018-11-27 23:45 | NUR ---
A 58, admitted to 4E, under the services of ROSA M Castillo DO with a diagnosis of COPD EXACERBATION. Chief complaint is SOB COUGH HEADACHE AND CONGESTION. Patient arrived via stretcher from ER. Monitor applied. Initial assessment completed. Vital signs taken and recorded. ROSA M CASTILLO DO notified of admission to the unit. Orders received. See assessment for past medical history, medications and allergies. Patient and/or family oriented to unit. [facility] visitation policy reviewed. Clothing/patient valuable form completed. DARON HENDERSON
--- NOTE | 2018-11-28 00:13 | NUR ---
PATIENT STAES THAT HE IS NOT A DIABETIC AND DOES NOT TAKE ANYTHING FOR DIABETES.
--- NOTE | 2018-11-28 00:19 | NUR ---
MEDS REVIEWED WITH PATIENT AND HIS MEDS FILLED HERE AT THE HOSPITAL
--- NOTE | 2018-11-28 06:07 | NUR ---
CONSULT CALLED TO DOCTOR VALENZUELA NO NEW ORDRES AT THIS TIME.
[2018-11-28 06:39] LABS: ALBUMIN 3.4 gm/dl (3.1-4.5); BUN 16 mg/dl (7-24); CHLORIDE 103 mmol/L (98-107); CHOLESTEROL 176 mg/dL (<200); CREATININE 1.11 mg/dL (0.70-1.30); PHOSPHOROUS 2.2 mg/dL (2.5-4.9); POTASSIUM 4.1 mmol/L (3.5-5.1); SGOT/AST 47 IU/L (3-35); SGPT/ALT 98 U/L (12-78); SODIUM 140 mmol/L (136-145); TOTAL PROTEIN 7.6 gm/dL (6.4-8.2); TRIGLYCERIDES 201 mg/dl (<150); VLDL CHOLESTEROL 40 mg/dL (6-40)
[2018-11-28 06:45] LABS: ALKALINE PHOSPHATASE 90 U/L (45-117); FREE T4 0.87 ng/dl (0.76-1.46); HDL CHOLESTEROL 29 mg/dl (40-60); LDL CHOLESTEROL 107 mg/dL (9-159); THYROID STIM HORMONE (HS) 0.217 uIU/ml (0.358-4.75)
[2018-11-28 06:54] LABS: HEMATOCRIT 43.6 % (42.0-52.0); HEMOGLOBIN 13.4 g/dl (14.0-18.0); MEAN CELL VOLUME 100.2 fl (80.0-94.0); MEAN CORPUSCULAR HGB 30.8 pg (27.0-31.0); MEAN CORPUSCULAR HGB CONC 30.7 g/dl (33.0-37.0); MEAN PLATELET VOLUME 11.7 fl (9.6-12.3); PLATELET COUNT AUTOMATED 164 10*3/uL (130-400); RED BLOOD COUNT 4.35 10*6/uL (4.50-5.90); RED CELL DISTRI WIDTH 14.1 % (0-14.5); WHITE BLOOD COUNT 6.1 10*3/uL (4.8-10.8)
[2018-11-28 07:31] LABS: PLATELET SUFFICIENCY NORMAL (NORMAL); TOTAL CELLS COUNTED 100 #CELLS
[2018-11-28 07:40] LABS: VITAMIN D, 25-HYDROXY 15.8 ng/mL (30-100)
[2018-11-28 08:00] VITALS: BP 152/70
--- NOTE | 2018-11-28 09:00 | NUR ---
Cloth Shrinking Machine Operator Helper in to talk to patient. Patient states lives at home with . There are few steps in the home. [facility]ician: [facility]acy: [facility] Home health services: none Patient's level of ADLs: INDEPENDENT Patient has working utilities: all working DME: home oxygen, doesn't remember the company Follow-up physician's appointment after d/c: will be made by hospitalist nurse director upon discharge Does patient want to access PORTAL?: no Discharge plan discussed with patient, patient lives at home with , states he is independent in adls and ambulation, drives, works occasionally, patient states he has home oxygen, but doesn't remember the name of the company. patient will be going home when able and denies any home needs. ИРИНА CHANG
--- NOTE | 2018-11-28 09:44 | NUR ---
PT WAS INSTRUCTED PT ON FLUTTER. PT TOLERATED WELL. PT CAN DO ON HIS OWN
[2018-11-28 12:00] VITALS: BP 141/70
--- NOTE | 2018-11-28 14:37 | NUR ---
Nutritional Support Services Note: Discussing with pt 1800cal diabetic diet. Diet copy given to pt. All questions were answered. Encouraged healthy eating and portion control. Encouraged more intake of vegetables and fruit. Discussed risks of high BS and need for compliance to diet and weight loss. Ht.5'10 Wt. 307#. Will follow as needed. Encouraged him to call me with any questions or concerns. Ellen Sosa Rdn Ld
[2018-11-28 16:00] VITALS: BP 135/63
[2018-11-28 20:00] VITALS: BP 140/65
[2018-11-29] VITALS: BP 128/69
--- NOTE | 2018-11-29 06:21 | NUR ---
NOTIFIED DR VALENZUELA OF PATIENTS BLOOD CULTURE RESULTS. STATED HE WOULD PUT IN FOR A REPEAT ORDER.
[2018-11-29 07:22] LABS: ALBUMIN 3.4 gm/dl (3.1-4.5); ALKALINE PHOSPHATASE 77 U/L (45-117); BUN 18 mg/dl (7-24); CHLORIDE 102 mmol/L (98-107); CREATININE 0.94 mg/dL (0.70-1.30); PHOSPHOROUS 3.2 mg/dL (2.5-4.9); POTASSIUM 4.2 mmol/L (3.5-5.1); SGOT/AST 28 IU/L (3-35); SGPT/ALT 78 U/L (12-78); SODIUM 140 mmol/L (136-145); TOTAL PROTEIN 7.1 gm/dL (6.4-8.2)
[2018-11-29 07:27] LABS: BASO % 0.1 % (0.0-1.0); LYMPH % 7.2 % (27.0-41.0); MEAN CORPUSCULAR HGB 31.2 pg (27.0-31.0); MEAN CORPUSCULAR HGB CONC 31.8 g/dl (33.0-37.0); MEAN PLATELET VOLUME 11.7 fl (9.6-12.3); MONO # 0.7 10*3/uL (0.1-1.0); MONO % 4.6 % (3.0-9.0); NEUT # 12.6 10*3/uL (2.3-7.9); PLATELET COUNT AUTOMATED 190 10*3/uL (130-400); RED BLOOD COUNT 4.49 10*6/uL (4.50-5.90); RED CELL DISTRI WIDTH 14.2 % (0-14.5); WHITE BLOOD COUNT 14.5 10*3/uL (4.8-10.8)
[2018-11-29 08:00] VITALS: BP 140/62
--- NOTE | 2018-11-29 10:00 | NUR ---
PATIENT AWAKE, ALERT, & ORIENTED X3. WHEEZES HEARD T/O LUNGS BILATERALLY. PATIENT STATES HE DOES FEEL SOME IMPROVEMENT FROM YESTERDAY IN THE SOB. STILL C/O PRODUCTIVE COUGH FOR WHITE SPUTUM. PATIENT WEARING 3L NASAL CANNULA. CALL LIGHT WITHIN REACH.
[2018-11-29 12:00] VITALS: BP 126/50
[2018-11-29 16:00] VITALS: BP 127/59
[2018-11-29 20:00] VITALS: BP 118/92
[2018-11-30] VITALS: BP 147/74
[2018-11-30 06:46] LABS: BASO % 0.3 % (0.0-1.0); HEMATOCRIT 43.9 % (42.0-52.0); HEMOGLOBIN 13.7 g/dl (14.0-18.0); LYMPH # 1.1 10*3/uL (1.3-4.4); LYMPH % 6.9 % (27.0-41.0); MEAN CELL VOLUME 99.5 fl (80.0-94.0); MEAN CORPUSCULAR HGB 31.1 pg (27.0-31.0); MEAN CORPUSCULAR HGB CONC 31.2 g/dl (33.0-37.0); MEAN PLATELET VOLUME 11.2 fl (9.6-12.3); MONO # 0.7 10*3/uL (0.1-1.0); MONO % 4.3 % (3.0-9.0); NEUT # 13.6 10*3/uL (2.3-7.9); NEUT % 86.6 % (47.0-73.0); PLATELET COUNT AUTOMATED 198 10*3/uL (130-400); RED BLOOD COUNT 4.41 10*6/uL (4.50-5.90); RED CELL DISTRI WIDTH 14.3 % (0-14.5); WHITE BLOOD COUNT 15.6 10*3/uL (4.8-10.8)
[2018-11-30 06:58] LABS: BUN 19 mg/dl (7-24); CHLORIDE 103 mmol/L (98-107); CREATININE 0.88 mg/dL (0.70-1.30); POTASSIUM 4.3 mmol/L (3.5-5.1); SODIUM 140 mmol/L (136-145)
[2018-11-30 08:00] VITALS: BP 131/62
--- NOTE | 2018-11-30 11:18 | NUR ---
SpO2 94% ON 4LNC. DECREASED TO 2LNC. WILL CONTINUE TO MONITOR.
[2018-11-30 12:00] VITALS: BP 140/73
[2018-11-30 16:00] VITALS: BP 129/60
--- NOTE | 2018-11-30 19:00 | NUR ---
PT AWAKE IN BED DURING BEDSIDE SHIFT REPORT. NO C/O VOICED AT PRESENT TIME. PT TEACHING GIVEN ON NEED FOR IV SITE FOR IV ATBS D/T POSITIVE BLOOD CULTURES. PT ACKNOWLEDGES BUT EXPRESSING CONCERNS OVER "BAD VEINS" AND PREVIOUS NURSES UNABLE TO OBTAIN IV SITE. ADVISED PT THAT AN ICU NURSE TRAINED IN IV INSERTIONS WILL BE IN AT A LATER TIME. CALL LIGHT IN REACH.
[2018-11-30 20:00] VITALS: BP 155/68
[2018-12-01] VITALS: BP 153/71
[2018-12-01 08:00] VITALS: BP 137/69
[2018-12-01] MEDS ORDERED: PREDNISONE10 MG PO (10:50)
[2018-12-01] MEDS ORDERED: ZITHROMAX500 MG PO (10:50)
[2018-12-01] MEDS ORDERED: MUCINEX ER600 MG PO (10:50)
--- NOTE | 2018-12-01 11:56 | NUR ---
PT ASSESED FOR CONTINOUS HOME OXYGEN. PT WEARS O2 AT NIGHT ONLY AT HOME PT QUALIFIES FOR 4LNC CONTINOUSLY PT AT REST SPO2 85-87% RA PLACED PT ON 2LNC SPO2 93-94% 2L, HR 82, B/P 164/61, RR 18 PT AMBULATED SPO2 87-88% 2LNC INCREASED TO 3L SPO2 90% 3LNC PT AMBULATED SPO2 88-89% 3LNC INCREASED TO 4L SPO2 90-92% 4LNC PT AT REST SPO2 93-95% 4LNC, HR 90, B/P 154/84, RR [address] NOTIFIED PT HAS [employer] AT HOME AND RT CALLED TO GIVE NEW PERSCRIPTION FOR CONTINOUS O2
--- NOTE | 2018-12-01 14:00 | NUR ---
Discharge instructions reviewed with patient/family. Patient receptive and verbalizes understanding. Follow-up care arranged. Written instructions given to patient/family. PATIENT DISCHARGED TO HOME VIA WHEELCHAIR WITH HOME OXYGEN TANK. TR FRANCO
== END 2018-12-01 14:00 | disposition home or self-care (01) | DRG 189 ==
LOC: ED 21:28 → EDHOLD 23:04 → 4E 23:04
PROVIDERS: Emergency Medicine Emergency Medical Services; Internal Medicine; Internal Medicine Nephrology; ADMIT Emergency Medicine
DX: J96.22 Acute and chronic respiratory failure with hypercapnia (principal); R78.81 Bacteremia; E44.0 Moderate protein-calorie malnutrition; J45.51 Severe persistent asthma with (acute) exacerbation; Z68.41 Body mass index [BMI] 40.0-44.9, adult; D53.9 Nutritional anemia, unspecified; R74.0 Nonspecific elevation of levels of transaminase and lactic acid dehydrogenase [LDH]; K57.90 Diverticulosis of intestine, part unspecified, without perforation or abscess without bleeding; K76.0 Fatty (change of) liver, not elsewhere classified; J20.9 Acute bronchitis, unspecified; E11.65 Type 2 diabetes mellitus with hyperglycemia; T38.0X5A Adverse effect of glucocorticoids and synthetic analogues, initial encounter; E55.9 Vitamin D deficiency, unspecified; J43.9 Emphysema, unspecified; I10 Essential (primary) hypertension; E66.01 Morbid (severe) obesity due to excess calories; G47.33 Obstructive sleep apnea (adult) (pediatric); Z99.81 Dependence on supplemental oxygen; Z88.1 Allergy status to other antibiotic agents; Z87.01 Personal history of pneumonia (recurrent); Z87.891 Personal history of nicotine dependence; Z82.49 Family history of ischemic heart disease and other diseases of the circulatory system; Z83.3 Family history of diabetes mellitus; Z87.442 Personal history of urinary calculi; Z82.5 Family history of asthma and other chronic lower respiratory diseases; Z79.899 Other long term (current) drug therapy; Y92.89 Other specified places as the place of occurrence of the external cause

== ENCOUNTER → 2018-12-09 | Outpatient (CLI) | payer OTHER ==
[~2018-12-09] MED LIST changes: +MUCINEX ER600 MG PO; +ZITHROMAX500 MG PO
== END | disposition home or self-care (01) ==
LOC: RESCLI 02:29
DX: Z09 Encounter for follow-up examination after completed treatment for conditions other than malignant neoplasm (principal); I11.0 Hypertensive heart disease with heart failure; I50.32 Chronic diastolic (congestive) heart failure; M79.89 Other specified soft tissue disorders; G89.29 Other chronic pain; E55.9 Vitamin D deficiency, unspecified; J96.11 Chronic respiratory failure with hypoxia; E11.65 Type 2 diabetes mellitus with hyperglycemia; E66.01 Morbid (severe) obesity due to excess calories; J44.9 Chronic obstructive pulmonary disease, unspecified; Z99.81 Dependence on supplemental oxygen; Z79.899 Other long term (current) drug therapy; Z79.82 Long term (current) use of aspirin; Z88.8 Allergy status to other drugs, medicaments and biological substances; Z87.891 Personal history of nicotine dependence

== ENCOUNTER 2018-12-29 23:17 | Emergency (ER) | payer OTHER ==
[~2018-12-29] VITALS: Ht 177.8 cm; Wt 136.1 kg
[2018-12-29 23:48] LABS: BASO # 0.1 10*3/uL (0.0-0.1); BASO % 0.6 % (0.0-1.0); EOS # 0.3 10*3/uL (0.0-0.4); HEMATOCRIT 40.7 % (42.0-52.0); HEMOGLOBIN 13.3 g/dl (14.0-18.0); LYMPH # 1.9 10*3/uL (1.3-4.4); LYMPH % 22.3 % (27.0-41.0); MEAN CELL VOLUME 95.1 fl (80.0-94.0); MEAN CORPUSCULAR HGB 31.1 pg (27.0-31.0); MEAN CORPUSCULAR HGB CONC 32.7 g/dl (33.0-37.0); MEAN PLATELET VOLUME 11.1 fl (9.6-12.3); MONO # 0.9 10*3/uL (0.1-1.0); MONO % 10.8 % (3.0-9.0); NEUT # 5.2 10*3/uL (2.3-7.9); NEUT % 61.2 % (47.0-73.0); NUCLEATED RED BLOOD CELL 0.2 % (0.0-0.0); PLATELET COUNT AUTOMATED 181 10*3/uL (130-400); RED BLOOD COUNT 4.28 10*6/uL (4.50-5.90); RED CELL DISTRI WIDTH 14.2 % (0-14.5); WHITE BLOOD COUNT 8.5 10*3/uL (4.8-10.8)
[2018-12-30 00:02] LABS: ALBUMIN 3.6 gm/dl (3.1-4.5); ALKALINE PHOSPHATASE 67 U/L (45-117); BUN 19 mg/dl (7-24); CHLORIDE 103 mmol/L (98-107); CREATININE 1.18 mg/dL (0.70-1.30); LIPASE 120 U/L (73-393); POTASSIUM 3.9 mmol/L (3.5-5.1); SGOT/AST 47 IU/L (3-35); SGPT/ALT 74 U/L (12-78); SODIUM 141 mmol/L (136-145); TOTAL PROTEIN 7.3 gm/dL (6.4-8.2)
[2018-12-30 00:03] LABS: BILIRUBIN NEGATIVE (NEGATIVE); BLOOD NEGATIVE (NEGATIVE); CLARITY SL CLOUDY (CLEAR); COLOR YELLOW (YELLOW); GLUCOSE NEGATIVE (NEGATIVE); KETONE TRACE (NEGATIVE); LEUKO ESTERASE NEGATIVE (NEGATIVE); NITRITE NEGATIVE (NEGATIVE); SPECIFIC GRAVITY <= 1.005 (1.005-1.030)
[2018-12-30 00:09] LABS: BACTERIA TRACE; EPITHELIAL CELLS 45-50; WBC 0-2 wbc/hpf (0-5)
[2018-12-30] MEDS ORDERED: FLOMAX0.4 MG PO (02:05)
== END 2018-12-30 02:09 | disposition home or self-care (01) ==
LOC: ED 23:17
PROVIDERS: Nurse Practitioner Family
DX: N20.0 Calculus of kidney (principal); J44.9 Chronic obstructive pulmonary disease, unspecified; E11.9 Type 2 diabetes mellitus without complications; I10 Essential (primary) hypertension; E66.01 Morbid (severe) obesity due to excess calories; Z87.442 Personal history of urinary calculi; Z88.1 Allergy status to other antibiotic agents; Z79.899 Other long term (current) drug therapy; Z87.891 Personal history of nicotine dependence

== ENCOUNTER → 2019-01-20 | Outpatient (CLI) | payer OTHER | END | disposition home or self-care (01) | LOC: RESCLI 01:00 | DX: I11.0 Hypertensive heart disease with heart failure (principal); I50.32 Chronic diastolic (congestive) heart failure; E66.01 Morbid (severe) obesity due to excess calories; E55.9 Vitamin D deficiency, unspecified; Z68.41 Body mass index [BMI] 40.0-44.9, adult; Z79.82 Long term (current) use of aspirin; Z79.899 Other long term (current) drug therapy; Z87.891 Personal history of nicotine dependence ==

== ENCOUNTER → 2019-03-13 | Outpatient (CLI) | payer OTHER | END | disposition home or self-care (01) | LOC: RESCLI 00:24 | DX: Z12.11 Encounter for screening for malignant neoplasm of colon (principal); Z12.5 Encounter for screening for malignant neoplasm of prostate; I11.0 Hypertensive heart disease with heart failure; I50.32 Chronic diastolic (congestive) heart failure; E66.01 Morbid (severe) obesity due to excess calories; E55.9 Vitamin D deficiency, unspecified; F10.10 Alcohol abuse, uncomplicated; D53.9 Nutritional anemia, unspecified; E11.65 Type 2 diabetes mellitus with hyperglycemia; Z68.41 Body mass index [BMI] 40.0-44.9, adult; Z79.899 Other long term (current) drug therapy; Z87.891 Personal history of nicotine dependence ==

== ENCOUNTER → 2019-04-17 | Outpatient (CLI) | payer OTHER ==
[2019-04-17 17:04] LABS: FERRITIN 108.6 ng/mL (22.0-322.0)
== END | disposition home or self-care (01) ==
LOC: LAB 09:36
PROVIDERS: Internal Medicine
DX: Z12.5 Encounter for screening for malignant neoplasm of prostate (principal); D53.9 Nutritional anemia, unspecified; E11.65 Type 2 diabetes mellitus with hyperglycemia

== ENCOUNTER → 2019-05-13 | Outpatient (CLI) | payer OTHER ==
[~2019-05-13] MED LIST changes: +DOXYCYCLINE100 M3 PO
== END | disposition home or self-care (01) ==
LOC: RESCLI 03:39
DX: Z12.11 Encounter for screening for malignant neoplasm of colon (principal); J41.0 Simple chronic bronchitis; E55.9 Vitamin D deficiency, unspecified; G89.29 Other chronic pain; D53.9 Nutritional anemia, unspecified; I11.0 Hypertensive heart disease with heart failure; I50.32 Chronic diastolic (congestive) heart failure; Z79.899 Other long term (current) drug therapy; Z87.891 Personal history of nicotine dependence

== ENCOUNTER 2019-06-25 07:59 | Inpatient (IN) | payer OTHER ==
[~2019-06-25] VITALS: Ht 177.8 cm; Wt 136.1 kg
[~2019-06-25 07:59] MED LIST changes: -DOXYCYCLINE100 M3 PO
[2019-06-25 08:01] VITALS: BP 126/70
--- NOTE | 2019-06-25 08:03 | NUR ---
DENIES ANY WOUNDS A&OX4.
[2019-06-25 08:30] VITALS: BP 124/56
[2019-06-25 08:39] LABS: BASO % 0.6 % (0.0-1.0); EOS # 0.5 10*3/uL (0.0-0.4); EOS % 6.3 % (1.0-4.0); HEMATOCRIT 48.2 % (42.0-52.0); HEMOGLOBIN 15.1 g/dl (14.0-18.0); LYMPH # 1.6 10*3/uL (1.3-4.4); LYMPH % 21.6 % (27.0-41.0); MEAN CORPUSCULAR HGB 30.7 pg (27.0-31.0); MEAN CORPUSCULAR HGB CONC 31.3 g/dl (33.0-37.0); MEAN PLATELET VOLUME 11.3 fl (9.6-12.3); MONO # 0.5 10*3/uL (0.1-1.0); NEUT # 4.6 10*3/uL (2.3-7.9); NEUT % 63.5 % (47.0-73.0); PLATELET COUNT AUTOMATED 165 10*3/uL (130-400); RED BLOOD COUNT 4.92 10*6/uL (4.50-5.90); RED CELL DISTRI WIDTH 14.8 % (0-14.5); WHITE BLOOD COUNT 7.2 10*3/uL (4.8-10.8)
[2019-06-25 08:51] LABS: ACT PARTIAL THROMBO TIME 26.3 SECONDS (20.0-32.1); INTERNATIONAL NORM RATIO 0.9 (2.0-3.5)
[2019-06-25 09:02] LABS: ALBUMIN 3.6 gm/dl (3.1-4.5); ALKALINE PHOSPHATASE 77 U/L (45-117); BUN 13 mg/dl (7-24); CHLORIDE 100 mmol/L (98-107); CREATININE 0.99 mg/dL (0.70-1.30); POTASSIUM 4.3 mmol/L (3.5-5.1); SGOT/AST 28 IU/L (3-35); SGPT/ALT 65 U/L (12-78); SODIUM 140 mmol/L (136-145); TOTAL PROTEIN 7.7 gm/dL (6.4-8.2)
--- NOTE | 2019-06-25 09:03 | NUR ---
PATIENT O2 TURNED OFF PER DR MARTIN VERBAL ORDER FOR ROOM AIR PULSE OX. PATIENT IS NOT O2 DEPENDENT DOCUMENTED IN TRIAGE. DAUGHTER JUST CONFIRMED THAT HE ONLY WEARS O2 AT NIGHT.
[2019-06-25 09:04] VITALS: BP 120/55
[2019-06-25 09:04] LABS: TROPONIN I < 0.015 ng/ml (<0.045)
--- NOTE | 2019-06-25 09:24 | NUR ---
PATIENT HAS HOME OXYGEN, WEARS 3LNC NEEDED.
--- NOTE | 2019-06-25 10:10 | NUR ---
ER NURSE ASK TO BRING PATIENT TO ROOM, STATES SHE WILL BRING SOON.
--- NOTE | 2019-06-25 10:43 | NUR ---
A 59, admitted to , under the services of MARLYN Bran DO with a diagnosis of COPD EXACERBATION. Chief complaint is SOB. Patient arrived via bed from ER. Monitor applied. Initial assessment completed. Vital signs taken and recorded. MARLYN BRAN DO notified of admission to the unit. Orders received. See assessment for past medical history, medications and allergies. Patient oriented to unit. Clothing/patient valuable form completed. REJI TOLEDO
--- NOTE | 2019-06-25 10:56 | NUR ---
BEDSIDE REPORT GIVEN TO REJI REILLY. NO CHANGE IN PATIENT STATUS.
--- NOTE | 2019-06-25 11:46 | NUR ---
MADE AWARE THAT HOME MEDS ARE VERIFIED.
[2019-06-25 14:00] VITALS: BP 110/88
[2019-06-25 16:00] VITALS: BP 128/42
[2019-06-25 20:00] VITALS: BP 144/65
--- NOTE | 2019-06-25 20:35 | NUR ---
PT INSTRUCTED ON FLUTTER. PT DISPLAYS PROPER TECHNIQUE OF FLUTTER VALUE. INSTRUCTED TO PERFORM Q1 HR WA. IWLL CONTINUE TO REASSESS NEEDED.
--- NOTE | 2019-06-25 20:53 | NUR ---
Neurological: AAOX3 Respiratory: NONLABORED, 3L O2 DEPENDENT Breath sounds: RHONCHI, WHEEZE T/O Cough: NONPRODUCTIVE Cardiovascular: HRR, DENIES CP/PRESSURE, NO EDEMA, PPP Gastrointestinal: NORMOACTIVE X4 QUADS, DENIES N/V/D/C, FIRM, OBESE, NONTENDER LAST BM 06/24 Genito/Urinary: DENIES DYSURIA Musculoskeketal: AMBULATORY W/ STEADY GAIT, SKIN INTACT PATIENT IS RESTING IN BED. ASSESSMENT IS COMPLETE WITH NO C/O OR S/S OF DISTRESS NOTED AT THIS TIME BED IS LOW, LOCKED, AND CALL LIGHT IS WITHIN REACH. PARISH BILL A
[2019-06-26] VITALS: BP 142/67
--- NOTE | 2019-06-26 05:03 | NUR ---
24 HR chart check completed.
--- NOTE | 2019-06-26 05:21 | NUR ---
PATIENT AROUSES EASILY FOR ADMINISTRATION OF AM MEDICATIONS. CALL LIGHT IS WITHIN REACH.
--- NOTE | 2019-06-26 07:00 | NUR ---
PT AWAKE. REPORT RECEIVED FROM PARISH REILLY
[2019-06-26 07:14] LABS: BASO % 0.1 % (0.0-1.0); HEMATOCRIT 46.4 % (42.0-52.0); HEMOGLOBIN 14.8 g/dl (14.0-18.0); LYMPH # 1.1 10*3/uL (1.3-4.4); LYMPH % 6.3 % (27.0-41.0); MEAN CELL VOLUME 95.9 fl (80.0-94.0); MEAN CORPUSCULAR HGB 30.6 pg (27.0-31.0); MEAN CORPUSCULAR HGB CONC 31.9 g/dl (33.0-37.0); MEAN PLATELET VOLUME 11.6 fl (9.6-12.3); MONO # 0.8 10*3/uL (0.1-1.0); NEUT # 14.8 10*3/uL (2.3-7.9); NEUT % 87.9 % (47.0-73.0); PLATELET COUNT AUTOMATED 195 10*3/uL (130-400); RED BLOOD COUNT 4.84 10*6/uL (4.50-5.90); RED CELL DISTRI WIDTH 14.6 % (0-14.5); WHITE BLOOD COUNT 16.9 10*3/uL (4.8-10.8)
[2019-06-26 07:20] LABS: ALBUMIN 3.4 gm/dl (3.1-4.5); BUN 16 mg/dl (7-24); CHLORIDE 101 mmol/L (98-107); POTASSIUM 4.1 mmol/L (3.5-5.1); SODIUM 138 mmol/L (136-145)
[2019-06-26 07:26] LABS: ACT PARTIAL THROMBO TIME 25.1 SECONDS (20.0-32.1); INTERNATIONAL NORM RATIO 0.9 (2.0-3.5)
[2019-06-26 07:30] LABS: ALKALINE PHOSPHATASE 75 U/L (45-117); CHOLESTEROL 196 mg/dL (<200); CREATININE 0.98 mg/dL (0.70-1.30); FREE T4 0.72 ng/dl (0.76-1.46); HDL CHOLESTEROL 35 mg/dl (40-60); LDL CHOLESTEROL 130 mg/dL (9-159); PHOSPHOROUS 2.8 mg/dL (2.5-4.9); SGOT/AST 21 IU/L (3-35); SGPT/ALT 54 U/L (12-78); THYROID STIM HORMONE (HS) 0.212 uIU/ml (0.358-4.75); TOTAL PROTEIN 7.3 gm/dL (6.4-8.2); TRIGLYCERIDES 154 mg/dl (<150); VLDL CHOLESTEROL 31 mg/dL (6-40)
[2019-06-26 08:00] VITALS: BP 132/62
[2019-06-26 08:09] LABS: VITAMIN D, 25-HYDROXY 20.7 ng/mL (30-100)
--- NOTE | 2019-06-26 09:00 | NUR ---
Mobile Ui/Ux Designer in to talk to patient. Patient states lives at home with . There are few steps in the home. [facility]ician[facility] Home health services: none Patient's level of ADLs: INDEPENDENT Patient has working utilities: all working DME: home oxygen, portable tanks, nebulizer from [facility], [place] Follow-up physician's appointment after d/c: will be made by hospitalist nurse director upon discharge Does patient want to access PORTAL?: no Discharge plan discussed with patient, he states he lives at home with , he is independent in adls and ambulation, he states he will return home when medically stable and denies any home needs. ИРИНА CHANG
--- NOTE | 2019-06-26 09:30 | NUR ---
PT AWAKE. ASSESSMENT COMPLETE. ROUTINE MEDICATIONS WELL TOLERATED. FAMILY VISITING AT THE BEDSIDE. BED LOW. CALL CARLISLE IN REACH
[2019-06-26 12:00] VITALS: BP 123/58
--- NOTE | 2019-06-26 13:41 | NUR ---
PT AWAKE. ASSESSMENT COMPLETE. ROUTINE MEDICATIONS WELL TOLERATED. FAMILY VISITING AT THE BEDSIDE. BED LOW. CALL CARLISLE IN REACH
--- NOTE | 2019-06-26 15:05 | NUR ---
24 HOUR CHART CHECK COMPLETED
--- NOTE | 2019-06-26 15:25 | NUR ---
PATIENT ASSESSMENT COMPLETED AT THIS TIME. PATIENT DENIES ANY PAIN, CHEST PAIN OR SHORTNESS OF BREATH AT THIS TIME. CALL LIGHT WITHIN REACH, WILL CONTINUE TO MONITOR.
--- NOTE | 2019-06-26 15:30 | NUR ---
BGL 341, SEE EMAR.
[2019-06-26 16:00] VITALS: BP 127/61
[2019-06-26 20:00] VITALS: BP 130/67
[2019-06-27] VITALS: BP 134/65
--- NOTE | 2019-06-27 00:15 | NUR ---
AWAKE & ALERT WATCHING T.V. 02 INTACT. NO DISTRESS NOTED; CALL LIGHT WITHIN REACH.
--- NOTE | 2019-06-27 06:00 | NUR ---
REFUSES TO HAVE BLOOD SUGAR DRAWN AT THIS TIME.
[2019-06-27 06:13] LABS: HEMOGLOBIN 14.5 g/dl (14.0-18.0); MEAN CELL VOLUME 96.6 fl (80.0-94.0); MEAN CORPUSCULAR HGB 30.5 pg (27.0-31.0); MEAN CORPUSCULAR HGB CONC 31.5 g/dl (33.0-37.0); MEAN PLATELET VOLUME 11.9 fl (9.6-12.3); PLATELET COUNT AUTOMATED 194 10*3/uL (130-400); RED BLOOD COUNT 4.76 10*6/uL (4.50-5.90); RED CELL DISTRI WIDTH 14.8 % (0-14.5); WHITE BLOOD COUNT 15.5 10*3/uL (4.8-10.8)
[2019-06-27 06:34] LABS: BUN 20 mg/dl (7-24); CHLORIDE 103 mmol/L (98-107); CREATININE 0.94 mg/dL (0.70-1.30); SODIUM 140 mmol/L (136-145)
[2019-06-27 07:09] LABS: PLATELET SUFFICIENCY NORMAL (NORMAL); TOTAL CELLS COUNTED 100 #CELLS
[2019-06-27] MEDS ORDERED: PREDNISONE10 MG PO (09:15)
[2019-06-27] MEDS ORDERED: DOXYCYCLINE100 M3 PO (09:15)
--- NOTE | 2019-06-27 12:30 | NUR ---
Discharge instructions reviewed with patient/family. Patient receptive and verbalizes understanding. Follow-up care arranged. Written instructions given to patient/family. PRINTED SCRIPTS GIVEN TO PT GUSTAVO HATCH
== END 2019-06-27 13:48 | disposition home or self-care (01) | DRG 190 ==
LOC: ED 07:59 → EDHOLD 09:18 → 4E 09:18
PROVIDERS: Emergency Medicine; Family Medicine; ADMIT Internal Medicine
DX: J44.0 Chronic obstructive pulmonary disease with (acute) lower respiratory infection (principal); J18.1 Lobar pneumonia, unspecified organism; J96.11 Chronic respiratory failure with hypoxia; Z68.41 Body mass index [BMI] 40.0-44.9, adult; J44.1 Chronic obstructive pulmonary disease with (acute) exacerbation; F17.210 Nicotine dependence, cigarettes, uncomplicated; K57.90 Diverticulosis of intestine, part unspecified, without perforation or abscess without bleeding; K76.0 Fatty (change of) liver, not elsewhere classified; E83.41 Hypermagnesemia; E11.65 Type 2 diabetes mellitus with hyperglycemia; G89.29 Other chronic pain; I10 Essential (primary) hypertension; E66.01 Morbid (severe) obesity due to excess calories; G47.33 Obstructive sleep apnea (adult) (pediatric); Z87.442 Personal history of urinary calculi; Z99.81 Dependence on supplemental oxygen; Z79.84 Long term (current) use of oral hypoglycemic drugs; Z88.0 Allergy status to penicillin; Z82.49 Family history of ischemic heart disease and other diseases of the circulatory system; Z83.3 Family history of diabetes mellitus; Z83.6 Family history of other diseases of the respiratory system; Z71.6 Tobacco abuse counseling

== ENCOUNTER → 2019-06-25 | Outpatient (CLI) | payer OTHER | END | disposition home or self-care (01) | LOC: US 06-04 10:30 | DX: K76.0 Fatty (change of) liver, not elsewhere classified (principal); D53.9 Nutritional anemia, unspecified ==

== ENCOUNTER → 2019-07-09 | Outpatient (CLI) | payer OTHER ==
[~2019-07-09] MED LIST changes: +DOXYCYCLINE100 M3 PO
== END | disposition home or self-care (01) ==
LOC: RESCLI 00:37
DX: Z13.31 Encounter for screening for depression (principal); Z01.89 Encounter for other specified special examinations; I11.0 Hypertensive heart disease with heart failure; I50.32 Chronic diastolic (congestive) heart failure; E55.9 Vitamin D deficiency, unspecified; G89.29 Other chronic pain; Z53.20 Procedure and treatment not carried out because of patient's decision for unspecified reasons; Z28.21 Immunization not carried out because of patient refusal; Z79.899 Other long term (current) drug therapy

== ENCOUNTER → 2019-08-27 | Outpatient (CLI) | payer OTHER | END | disposition home or self-care (01) | LOC: RESCLI 00:58 | DX: Z12.11 Encounter for screening for malignant neoplasm of colon (principal); Z13.1 Encounter for screening for diabetes mellitus; I11.0 Hypertensive heart disease with heart failure; F10.10 Alcohol abuse, uncomplicated; J41.0 Simple chronic bronchitis; I50.32 Chronic diastolic (congestive) heart failure; E55.9 Vitamin D deficiency, unspecified; M54.5 Low back pain; E66.01 Morbid (severe) obesity due to excess calories; G47.33 Obstructive sleep apnea (adult) (pediatric); K76.0 Fatty (change of) liver, not elsewhere classified; R16.0 Hepatomegaly, not elsewhere classified; Z68.42 Body mass index [BMI] 45.0-49.9, adult ==

== ENCOUNTER → 2020-06-24 | Outpatient (CLI) | payer MEDICARE, MEDICAID | END | disposition home or self-care (01) | LOC: RESCLI 14:03 | PROVIDERS: ATTEND Internal Medicine | DX: I11.0 Hypertensive heart disease with heart failure (principal); I50.32 Chronic diastolic (congestive) heart failure; J44.9 Chronic obstructive pulmonary disease, unspecified; E55.9 Vitamin D deficiency, unspecified; Z68.41 Body mass index [BMI] 40.0-44.9, adult; Z79.899 Other long term (current) drug therapy; Z53.20 Procedure and treatment not carried out because of patient's decision for unspecified reasons; Z28.21 Immunization not carried out because of patient refusal; G47.30 Sleep apnea, unspecified ==

== ENCOUNTER → 2020-08-30 | Outpatient (CLI) | payer MEDICARE, MEDICAID ==
[2020-08-30 10:42] LABS: BASO % 0.5 % (0.0-1.0); EOS # 0.3 10*3/uL (0.0-0.4); EOS % 3.2 % (1.0-4.0); HEMATOCRIT 45.8 % (42.0-52.0); LYMPH # 2.2 10*3/uL (1.3-4.4); LYMPH % 26.3 % (27.0-41.0); MEAN CELL VOLUME 93.7 fl (80.0-94.0); MEAN CORPUSCULAR HGB 29.9 pg (27.0-31.0); MEAN CORPUSCULAR HGB CONC 31.9 g/dl (33.0-37.0); MEAN PLATELET VOLUME 10.9 fl (9.6-12.3); MONO # 0.6 10*3/uL (0.1-1.0); MONO % 7.2 % (3.0-9.0); NEUT # 5.2 10*3/uL (2.3-7.9); NEUT % 61.6 % (47.0-73.0); PLATELET COUNT AUTOMATED 172 10*3/uL (130-400); RED BLOOD COUNT 4.89 10*6/uL (4.50-5.90); RED CELL DISTRI WIDTH 14.1 % (0-14.5); WHITE BLOOD COUNT 8.5 10*3/uL (4.8-10.8)
[2020-08-30 11:15] LABS: ALBUMIN 3.7 gm/dl (3.1-4.5); BUN 19 mg/dl (7-24); CHLORIDE 100 mmol/L (98-107); POTASSIUM 3.9 mmol/L (3.5-5.1); SODIUM 138 mmol/L (136-145)
[2020-08-30 11:24] LABS: ALKALINE PHOSPHATASE 89 U/L (45-117); CHOLESTEROL 194 mg/dL (<200); CREATININE 0.86 mg/dL (0.70-1.30); HDL CHOLESTEROL 32 mg/dl (40-60); SGOT/AST 48 IU/L (3-35); SGPT/ALT 78 U/L (12-78); TOTAL PROTEIN 7.7 gm/dL (6.4-8.2); TRIGLYCERIDES 501 mg/dl (<150)
[2020-08-30 11:50] LABS: VITAMIN D, 25-HYDROXY 16.9 ng/mL (30-100)
== END | disposition home or self-care (01) ==
LOC: LAB 00:21
PROVIDERS: Internal Medicine; ATTEND Student in an Organized Health Care Education/Training Program
DX: I10 Essential (primary) hypertension (principal); E55.9 Vitamin D deficiency, unspecified; Z68.41 Body mass index [BMI] 40.0-44.9, adult; Z79.899 Other long term (current) drug therapy

== ENCOUNTER → 2020-10-04 | Outpatient (CLI) | payer MEDICARE, MEDICAID | END | disposition home or self-care (01) | LOC: RESCLI 01:23 | PROVIDERS: ATTEND Internal Medicine | DX: I11.0 Hypertensive heart disease with heart failure (principal); E11.65 Type 2 diabetes mellitus with hyperglycemia; E78.5 Hyperlipidemia, unspecified; I50.32 Chronic diastolic (congestive) heart failure; E55.9 Vitamin D deficiency, unspecified; J44.9 Chronic obstructive pulmonary disease, unspecified; Z79.82 Long term (current) use of aspirin; Z79.899 Other long term (current) drug therapy ==

== ENCOUNTER 2021-01-12 09:09 | Emergency (ER) | payer MEDICARE, MEDICAID ==
[~2021-01-12] VITALS: Wt 136.1 kg
[2021-01-12 09:42] LABS: BASO % 0.4 % (0.0-1.0); EOS # 0.1 10*3/uL (0.0-0.4); EOS % 1.3 % (1.0-4.0); HEMATOCRIT 43.1 % (42.0-52.0); LYMPH # 1.3 10*3/uL (1.3-4.4); LYMPH % 11.5 % (27.0-41.0); MEAN CELL VOLUME 92.5 fl (80.0-94.0); MEAN CORPUSCULAR HGB 31.1 pg (27.0-31.0); MEAN CORPUSCULAR HGB CONC 33.6 g/dl (33.0-37.0); MEAN PLATELET VOLUME 11.3 fl (9.6-12.3); MONO # 0.7 10*3/uL (0.1-1.0); MONO % 6.2 % (3.0-9.0); NEUT # 8.8 10*3/uL (2.3-7.9); NEUT % 79.8 % (47.0-73.0); PLATELET COUNT AUTOMATED 167 10*3/uL (130-400); RED BLOOD COUNT 4.66 10*6/uL (4.50-5.90); RED CELL DISTRI WIDTH 14.1 % (0-14.5)
[2021-01-12 09:52] LABS: ACT PARTIAL THROMBO TIME 25.8 SECONDS (20.0-32.1)
[2021-01-12 09:56] LABS: ALBUMIN 3.5 gm/dl (3.1-4.5); ALKALINE PHOSPHATASE 115 U/L (45-117); BUN 20 mg/dl (7-24); CHLORIDE 98 mmol/L (98-107); CREATININE 1.11 mg/dL (0.70-1.30); LIPASE 125 U/L (73-393); POTASSIUM 4.2 mmol/L (3.5-5.1); SGOT/AST 20 IU/L (3-35); SGPT/ALT 58 U/L (12-78); SODIUM 133 mmol/L (136-145); TOTAL PROTEIN 7.6 gm/dL (6.4-8.2)
[2021-01-12 10:37] LABS: BILIRUBIN Negative (Negative); BLOOD Trace-Intact (Negative); CLARITY Clear (Clear); COLOR Yellow (Yellow); GLUCOSE 3+ (Negative); KETONE 1+ (Negative); LEUKO ESTERASE Negative (Negative); NITRITE Negative (Negative); PH 6.5 (4.5-8.0); SPECIFIC GRAVITY >= 1.030 (1.001-1.030); UROBILINOGEN 0.2 E.U./dl (0.0-1.0)
[2021-01-12 10:54] LABS: BACTERIA TRACE; RBC 0-2 rbc/hpf (0-2); WBC 0-2 wbc/hpf (0-5)
== END 2021-01-12 11:10 | disposition short-term general hospital (02) ==
LOC: ED 09:09
PROVIDERS: Emergency Medicine
DX: N13.2 Hydronephrosis with renal and ureteral calculous obstruction (principal); J44.9 Chronic obstructive pulmonary disease, unspecified; E11.9 Type 2 diabetes mellitus without complications; I10 Essential (primary) hypertension; E66.01 Morbid (severe) obesity due to excess calories; G47.33 Obstructive sleep apnea (adult) (pediatric); Z88.8 Allergy status to other drugs, medicaments and biological substances; Z79.899 Other long term (current) drug therapy

== ENCOUNTER → 2021-03-17 | Outpatient (CLI) | payer MEDICARE, MEDICAID ==
[2021-03-17 15:20] LABS: BASO # 0.1 10*3/uL (0.0-0.1); BASO % 0.6 % (0.0-1.0); EOS # 0.2 10*3/uL (0.0-0.4); EOS % 2.6 % (1.0-4.0); HEMATOCRIT 41.1 % (42.0-52.0); LYMPH # 1.9 10*3/uL (1.3-4.4); LYMPH % 22.1 % (27.0-41.0); MEAN CELL VOLUME 94.1 fl (80.0-94.0); MEAN CORPUSCULAR HGB 30.9 pg (27.0-31.0); MEAN CORPUSCULAR HGB CONC 32.8 g/dl (33.0-37.0); MEAN PLATELET VOLUME 11.5 fl (9.6-12.3); MONO # 0.6 10*3/uL (0.1-1.0); MONO % 6.4 % (3.0-9.0); NEUT # 5.9 10*3/uL (2.3-7.9); NEUT % 67.2 % (47.0-73.0); PLATELET COUNT AUTOMATED 162 10*3/uL (130-400); RED BLOOD COUNT 4.37 10*6/uL (4.50-5.90); RED CELL DISTRI WIDTH 14.7 % (0-14.5); WHITE BLOOD COUNT 8.7 10*3/uL (4.8-10.8)
[2021-03-17 15:36] LABS: ALBUMIN 3.7 gm/dl (3.1-4.5); ALKALINE PHOSPHATASE 106 U/L (45-117); BUN 14 mg/dl (7-24); CHLORIDE 99 mmol/L (98-107); POTASSIUM 3.7 mmol/L (3.5-5.1); SGOT/AST 17 IU/L (3-35); SGPT/ALT 39 U/L (12-78); SODIUM 135 mmol/L (136-145); T3 UPTAKE 36 % (31-39); THYROXINE (T4) TOTAL 9.5 ug/dl (4.5-12.1); TOTAL PROTEIN 7.6 gm/dL (6.4-8.2)
== END | disposition home or self-care (01) ==
LOC: LAB 13:44 → US 14:00
PROVIDERS: ATTEND Urology
DX: Z12.5 Encounter for screening for malignant neoplasm of prostate (principal); N20.0 Calculus of kidney; N28.1 Cyst of kidney, acquired; R31.9 Hematuria, unspecified; N32.89 Other specified disorders of bladder

== ENCOUNTER → 2021-03-27 | Outpatient (CLI) | payer MEDICARE, MEDICAID ==
[2021-04-06 00:06] LABS: BUSHITE 1.62 ratio (0.00-3.00); CALCIUM OXALATE 2.43 ratio (0.00-6.00); CITRIC ACID (CITRATE) 1003 mg/24 hr (320-1240); CREATININE, URINE 1570.8 mg/24 hr (1000.0-2000.0); CREATININE, URINE 71.4 mg/dL (Not Estab.); MAGNESIUM, URINE 4.2 mg/dL (Not Estab.); MONOSODIUM URATE 6.71 ratio (0.00-4.00); OSMOLALITY, URINE 679 (300-900); SODIUM, URINE 122 mmol/L (Not Estab.); SODIUM, URINE 268 (58-337); STRUVITE 0.06 ratio (0.00-1.00); URIC ACID 0.56 ratio (0.00-1.20); pH 24 HR URINE 6.6 (.)
== END | disposition home or self-care (01) ==
LOC: LAB 11:55
PROVIDERS: ATTEND Urology
DX: N20.0 Calculus of kidney (principal); R31.9 Hematuria, unspecified

== ENCOUNTER → 2021-04-11 | Outpatient (CLI) | payer OTHER ==
[2021-04-11 14:36] LABS: CHOLESTEROL 138 mg/dL (<200); TRIGLYCERIDES 405 mg/dl (<150)
== END | disposition home or self-care (01) ==
LOC: RESCLI 12:52
PROVIDERS: Student in an Organized Health Care Education/Training Program; ATTEND Social Worker Clinical
DX: J44.1 Chronic obstructive pulmonary disease with (acute) exacerbation (principal); Z91.19 Patient's noncompliance with other medical treatment and regimen; I10 Essential (primary) hypertension; Z72.0 Tobacco use; E11.65 Type 2 diabetes mellitus with hyperglycemia; R60.0 Localized edema; E78.5 Hyperlipidemia, unspecified; E55.9 Vitamin D deficiency, unspecified; Z79.82 Long term (current) use of aspirin; Z79.899 Other long term (current) drug therapy

== ENCOUNTER → 2021-06-08 | Outpatient (CLI) | payer OTHER | END | disposition home or self-care (01) | LOC: US 12:50 | PROVIDERS: ATTEND Urology | DX: N28.1 Cyst of kidney, acquired (principal); N13.30 Unspecified hydronephrosis ==

== ENCOUNTER → 2021-07-13 | Outpatient (CLI) | payer OTHER | END | disposition home or self-care (01) | LOC: RESCLI 13:04 | PROVIDERS: ATTEND Internal Medicine | DX: Z23 Encounter for immunization (principal); E11.65 Type 2 diabetes mellitus with hyperglycemia; Z72.0 Tobacco use; E55.9 Vitamin D deficiency, unspecified; E78.5 Hyperlipidemia, unspecified; J44.1 Chronic obstructive pulmonary disease with (acute) exacerbation; I10 Essential (primary) hypertension; Z79.82 Long term (current) use of aspirin; Z79.899 Other long term (current) drug therapy; K76.0 Fatty (change of) liver, not elsewhere classified; K57.90 Diverticulosis of intestine, part unspecified, without perforation or abscess without bleeding ==

== ENCOUNTER → 2021-07-26 | Outpatient (CLI) | payer OTHER | END | disposition home or self-care (01) | LOC: COVID19 17:46 | PROVIDERS: ATTEND Internal Medicine | DX: U07.1 COVID-19 (principal) ==

== ENCOUNTER → 2021-10-27 | Outpatient (CLI) | payer OTHER | END | disposition home or self-care (01) | LOC: RESCLI 00:34 | PROVIDERS: ATTEND Student in an Organized Health Care Education/Training Program | DX: E11.65 Type 2 diabetes mellitus with hyperglycemia (principal); I10 Essential (primary) hypertension; E78.5 Hyperlipidemia, unspecified; E55.9 Vitamin D deficiency, unspecified; J44.1 Chronic obstructive pulmonary disease with (acute) exacerbation; Z72.0 Tobacco use; E66.9 Obesity, unspecified; K76.0 Fatty (change of) liver, not elsewhere classified; G47.33 Obstructive sleep apnea (adult) (pediatric); Z79.82 Long term (current) use of aspirin; Z79.84 Long term (current) use of oral hypoglycemic drugs; Z79.899 Other long term (current) drug therapy ==

== ENCOUNTER → 2021-11-27 | Outpatient (CLI) | payer OTHER ==
[2021-11-27 11:45] LABS: BASO % 0.6 % (0.0-1.0); EOS # 0.3 10*3/uL (0.0-0.4); EOS % 3.9 % (1.0-4.0); HEMATOCRIT 41.8 % (42.0-52.0); LYMPH # 2.2 10*3/uL (1.3-4.4); LYMPH % 32.5 % (27.0-41.0); MEAN CELL VOLUME 94.8 fl (80.0-94.0); MEAN CORPUSCULAR HGB 30.2 pg (27.0-31.0); MEAN CORPUSCULAR HGB CONC 31.8 g/dl (33.0-37.0); MONO # 0.5 10*3/uL (0.1-1.0); MONO % 6.8 % (3.0-9.0); NEUT # 3.7 10*3/uL (2.3-7.9); NEUT % 55.4 % (47.0-73.0); PLATELET COUNT AUTOMATED 177 10*3/uL (130-400); RED BLOOD COUNT 4.41 10*6/uL (4.50-5.90); RED CELL DISTRI WIDTH 14.7 % (0-14.5); WHITE BLOOD COUNT 6.6 10*3/uL (4.8-10.8)
[2021-11-27 12:06] LABS: CHLORIDE 102 mmol/L (98-107); POTASSIUM 4.3 mmol/L (3.5-5.1); SODIUM 139 mmol/L (136-145)
[2021-11-27 12:13] LABS: ALKALINE PHOSPHATASE 94 U/L (45-117); BUN 23 mg/dl (7-24); CHOLESTEROL 118 mg/dL (<200); CREATININE 0.89 mg/dL (0.70-1.30); LDL CHOLESTEROL 44 mg/dL (9-159); SGOT/AST 19 IU/L (3-35); SGPT/ALT 43 U/L (12-78); TRIGLYCERIDES 225 mg/dl (<150)
[2021-11-28 04:06] LABS: HEPATITIS B SURFACE AG Negative (Negative)
[2021-11-28 10:08] LABS: CREATININE,URINE 137.1 mg/dL (Not Estab.)
== END | disposition home or self-care (01) ==
LOC: LAB 11:14
PROVIDERS: Internal Medicine; ATTEND Internal Medicine Nephrology
DX: E11.65 Type 2 diabetes mellitus with hyperglycemia (principal); Z79.899 Other long term (current) drug therapy; Z11.59 Encounter for screening for other viral diseases

== ENCOUNTER → 2021-12-12 | Outpatient (CLI) | payer OTHER | END | disposition home or self-care (01) | LOC: RESCLI 00:32 | PROVIDERS: ATTEND Internal Medicine | DX: Z72.0 Tobacco use (principal); R60.0 Localized edema; E11.65 Type 2 diabetes mellitus with hyperglycemia; E55.9 Vitamin D deficiency, unspecified; I11.0 Hypertensive heart disease with heart failure; I50.32 Chronic diastolic (congestive) heart failure; I25.10 Atherosclerotic heart disease of native coronary artery without angina pectoris; Z91.19 Patient's noncompliance with other medical treatment and regimen; F17.210 Nicotine dependence, cigarettes, uncomplicated; J44.1 Chronic obstructive pulmonary disease with (acute) exacerbation; E78.5 Hyperlipidemia, unspecified; Z79.899 Other long term (current) drug therapy; Z79.82 Long term (current) use of aspirin ==

== ENCOUNTER → 2022-12-25 | Outpatient (CLI) | payer OTHER | END | disposition home or self-care (01) | LOC: RESCLI 09:06 | PROVIDERS: ATTEND Internal Medicine | DX: Z13.9 Encounter for screening, unspecified (principal); E55.9 Vitamin D deficiency, unspecified; E11.65 Type 2 diabetes mellitus with hyperglycemia; I25.10 Atherosclerotic heart disease of native coronary artery without angina pectoris; I10 Essential (primary) hypertension; E78.5 Hyperlipidemia, unspecified; J44.9 Chronic obstructive pulmonary disease, unspecified; M54.9 Dorsalgia, unspecified; F17.210 Nicotine dependence, cigarettes, uncomplicated; Z98.890 Other specified postprocedural states; Z79.84 Long term (current) use of oral hypoglycemic drugs; Z79.899 Other long term (current) drug therapy ==

== ENCOUNTER → 2022-12-31 | Outpatient (CLI) | payer OTHER ==
[2022-12-31 13:41] LABS: BASO # 0.1 10*3/uL (0.0-0.1); BASO % 0.6 % (0.0-1.0); EOS # 0.2 10*3/uL (0.0-0.4); EOS % 2.8 % (1.0-4.0); HEMATOCRIT 44.7 % (42.0-52.0); LYMPH # 2.1 10*3/uL (1.3-4.4); LYMPH % 27.1 % (27.0-41.0); MEAN CELL VOLUME 94.1 fl (80.0-94.0); MEAN CORPUSCULAR HGB 30.9 pg (27.0-31.0); MEAN CORPUSCULAR HGB CONC 32.9 g/dl (33.0-37.0); MEAN PLATELET VOLUME 10.8 fl (9.6-12.3); MONO # 0.5 10*3/uL (0.1-1.0); MONO % 6.1 % (3.0-9.0); NEUT # 4.9 10*3/uL (2.3-7.9); NEUT % 62.5 % (47.0-73.0); PLATELET COUNT AUTOMATED 170 10*3/uL (130-400); RED BLOOD COUNT 4.75 10*6/uL (4.50-5.90); RED CELL DISTRI WIDTH 14.3 % (0-14.5); WHITE BLOOD COUNT 7.9 10*3/uL (4.8-10.8)
[2022-12-31 14:36] LABS: ALKALINE PHOSPHATASE 109 U/L (46-116); BUN 17 mg/dl (9-23); CHLORIDE 99 mmol/L (98-107); CHOLESTEROL 138 mg/dL (<200); POTASSIUM 4.1 mmol/L (3.4-5.1); SGPT/ALT 39 U/L (10-49); TOTAL PROTEIN 7.9 gm/dL (6.0-8.0); TRIGLYCERIDES 528 mg/dl (<150)
== END | disposition home or self-care (01) ==
LOC: LAB 13:24
PROVIDERS: ATTEND Internal Medicine
DX: Z13.9 Encounter for screening, unspecified (principal)

== ENCOUNTER → 2023-01-22 | Outpatient (CLI) | payer OTHER | END | disposition home or self-care (01) | LOC: RESCLI 01:46 | PROVIDERS: ATTEND Internal Medicine | DX: E11.65 Type 2 diabetes mellitus with hyperglycemia (principal); E55.9 Vitamin D deficiency, unspecified; I11.0 Hypertensive heart disease with heart failure; I50.32 Chronic diastolic (congestive) heart failure; E78.5 Hyperlipidemia, unspecified; J44.1 Chronic obstructive pulmonary disease with (acute) exacerbation; I25.10 Atherosclerotic heart disease of native coronary artery without angina pectoris; Z79.82 Long term (current) use of aspirin; Z79.899 Other long term (current) drug therapy ==

== ENCOUNTER → 2023-11-29 | Outpatient (CLI) | payer MEDICARE, OTHER ==
[~2023-11-29] MED LIST changes: +JARDIANCE25 MG PO; +LIPITOR80 MG PO; +METFORMIN HCL1000 M1 PO; +TYLENOL EXTRA500 MG PO
[2023-11-29 16:21] LABS: CHOLESTEROL 123 mg/dL (<200); LDL CHOLESTEROL 53 mg/dL (9-159); TRIGLYCERIDES 217 mg/dl (<150)
== END ==
LOC: LAB 01:55 → RESCLI 01:55
PROVIDERS: ATTEND Internal Medicine
DX: I11.0 Hypertensive heart disease with heart failure (principal); I50.32 Chronic diastolic (congestive) heart failure; E78.5 Hyperlipidemia, unspecified; Z79.899 Other long term (current) drug therapy; E11.65 Type 2 diabetes mellitus with hyperglycemia; J44.1 Chronic obstructive pulmonary disease with (acute) exacerbation; I25.10 Atherosclerotic heart disease of native coronary artery without angina pectoris; J44.9 Chronic obstructive pulmonary disease, unspecified; E55.9 Vitamin D deficiency, unspecified

== ENCOUNTER → 2024-06-25 | Outpatient (CLI) | payer MEDICARE, OTHER | END | disposition home or self-care (01) | LOC: RESCLI 00:31 | PROVIDERS: ATTEND Student in an Organized Health Care Education/Training Program | DX: E11.65 Type 2 diabetes mellitus with hyperglycemia (principal); J44.1 Chronic obstructive pulmonary disease with (acute) exacerbation; E55.9 Vitamin D deficiency, unspecified; E78.5 Hyperlipidemia, unspecified; G47.33 Obstructive sleep apnea (adult) (pediatric); I25.10 Atherosclerotic heart disease of native coronary artery without angina pectoris; I11.0 Hypertensive heart disease with heart failure; I50.32 Chronic diastolic (congestive) heart failure; F10.90 Alcohol use, unspecified, uncomplicated; Z87.891 Personal history of nicotine dependence; Z79.899 Other long term (current) drug therapy; Z79.84 Long term (current) use of oral hypoglycemic drugs; Z79.82 Long term (current) use of aspirin ==

== ENCOUNTER → 2024-10-08 | Outpatient (CLI) | payer MEDICARE, OTHER | END | disposition home or self-care (01) | LOC: RESCLI 00:36 | PROVIDERS: ATTEND Student in an Organized Health Care Education/Training Program | DX: I11.0 Hypertensive heart disease with heart failure (principal); I50.32 Chronic diastolic (congestive) heart failure; E11.65 Type 2 diabetes mellitus with hyperglycemia; E55.9 Vitamin D deficiency, unspecified; J44.1 Chronic obstructive pulmonary disease with (acute) exacerbation; I25.10 Atherosclerotic heart disease of native coronary artery without angina pectoris; E78.5 Hyperlipidemia, unspecified; Z98.890 Other specified postprocedural states; Z79.899 Other long term (current) drug therapy; Z79.82 Long term (current) use of aspirin ==

== ENCOUNTER → 2025-04-14 | Outpatient (CLI) | payer MEDICARE, OTHER | END | disposition home or self-care (01) | LOC: RESCLI 02:04 | PROVIDERS: ATTEND Internal Medicine | DX: I11.0 Hypertensive heart disease with heart failure (principal); I50.32 Chronic diastolic (congestive) heart failure; E78.5 Hyperlipidemia, unspecified; J44.9 Chronic obstructive pulmonary disease, unspecified; E11.65 Type 2 diabetes mellitus with hyperglycemia; G47.33 Obstructive sleep apnea (adult) (pediatric); E66.9 Obesity, unspecified; F17.210 Nicotine dependence, cigarettes, uncomplicated ==

== ENCOUNTER → 2025-05-19 | Outpatient (CLI) | payer MEDICARE, OTHER ==
[2025-05-19 10:22] LABS: LDL CHOLESTEROL 40 mg/dL (9-159)
== END | disposition home or self-care (01) ==
LOC: LAB 09:31
PROVIDERS: ATTEND Internal Medicine
DX: E11.65 Type 2 diabetes mellitus with hyperglycemia (principal); E78.5 Hyperlipidemia, unspecified